=== PATIENT | female | born 1975 | race Caucasian/White ===

== ENCOUNTER 2022-11-01 14:38 | Emergency (ER) | payer MEDICARE, SELFPAY ==
[2022-11-01 14:44] VITALS: BP 115/67; PULSE 84; RESP 18; TEMP 36.6; O2SAT 98; BMI 18.9
--- NOTE | 2022-11-01 14:55 | DI.RAD.S_ITS ---
PROCEDURE: XR CHEST 1V INDICATIONS: chest pain TECHNIQUE: One view of the chest was acquired. COMPARISON: None. FINDINGS: Surgical changes and devices: None. Lungs and pleura: Lungs are clear. No pleural effusions or pneumothorax. Mediastinum: Mediastinal contours appear normal. Heart size is normal. Bones and chest wall: No suspicious bony lesions. Overlying soft tissues appear unremarkable. IMPRESSION: No acute cardiopulmonary findings Approved by: Dm Barcenas M.D. on 11/01/2022 at 14:40
[2022-11-01 15:18] LABS: Add Manual Diff / Slide Review NO; Basophils Absolute Auto 0 /uL (0-100); Basophils Percent Auto 0.3 % (0-2); Eosinophils Absolute Auto 0 /uL (0-450); Eosinophils Percent Auto 0.3 % (2-4); Hematocrit 41.3 % (36-46); Hemoglobin 13.7 g/dL (12.0-16.0); Lymphocytes Absolute Auto 700 /uL (1100-4500); Lymphocytes Percent Auto 11.3 % (25-40); Mean Corpuscular HGB Conc 33.2 % (30-36); Mean Corpuscular Hemoglobin 31.4 PG (26-34); Mean Corpuscular Volume 94.6 fL (80-100); Monocytes Absolute Auto 400 /uL (0-900); Monocytes Percent Auto 6.9 % (3-14); Neutrophils Absolute Auto 5100 /uL (1500-7000); Neutrophils Percent Auto 81.2 % (50-75); Platelet Count 252 X10^3/uL (150-400); Red Blood Cell Count 4.36 X10^6/uL (4.0-5.2); Red Cell Distribution Width 12.7 % (11.6-14.8); White Blood Cell Count 6.3 X10^3/uL (4.5-11.0)
[2022-11-01 15:24] LABS: Prothrombin Time 11.2 SECONDS (10.1-12.7)
[2022-11-01] MEDS: SODIUM CHLORIDE 0.9% 1,000 ML 1000 ML IV (15:26)
[2022-11-01 15:27] LABS: PTT Partial Thromboplastin Tim 32 SECONDS (26-36)
[2022-11-01 15:30] LABS: COVID19 -Nasal RAPID Negative (Negative)
[2022-11-01 15:31] LABS: Alanine Aminotransferase 20 IU/L (<35); Albumin 4.9 g/dL (3.5-5.0); Albumin Globulin Ratio 1.6 (1.0-2.8); Alkaline Phosphatase 51 U/L (38-126); Aspartate Aminotransferase 44 IU/L (14-36); BUN Creatinine Ratio 16.7 (6-22); Bilirubin Total 0.6 mg/dL (0.2-1.3); Blood Urea Nitrogen 12 mg/dL (7-17); Calcium 9.1 mg/dL (8.4-10.2); Carbon Dioxide 27 mmol/L (22-32); Chloride 99 mmol/L (98-107); Creatine Kinase 119 U/L (30-135); Estimated Glomerular Filt Rate > 60 mL/min (>60); Glucose 104 mg/dL (70-100); HEMOLYSIS < 15 (0-50); Lipase 150 U/L (23-300); Magnesium 1.9 mg/dL (1.6-2.3); Potassium 3.4 mmol/L (3.4-5.1); Sodium 135 mmol/L (137-145); Total Protein 7.9 g/dL (6.3-8.2)
[2022-11-01 15:43] LABS: Troponin I < 0.012 ng/mL (0.01-0.034)
[2022-11-01 15:46] LABS: CKMB % Relative Index 0.5 % (1.5-5.0); Creatine Kinase MB 0.62 ng/mL (<2.37)
[2022-11-01 16:12] VITALS: BP 182/99; PULSE 101; O2SAT 97
--- NOTE | 2022-11-01 16:45 | ED_ITS ---
HPI - General Adult General Chief complaint: Syncope Stated complaint: blood pressure, almost passed out Time Seen by Provider: 11/01/22 15:16 Source: patient Mode of arrival: Wheelchair History of Present Illness HPI narrative: 47-year-old female occasional smoker with history of MS and hypertension presents for evaluation of a near syncopal episode. She had been in her normal state of health and states that she was in the kitchen and started feeling a bit flushed and lightheaded as if she were going to pass out. She is been through multiple episodes that are similar in the past and sometimes it is because dehydration or abnormal electrolytes, another occasions has been thought to perhaps be related to her MS but she is very certain this is not related to an MS flare. She states she is been under increased stress and has been packing up her home. She denies any change in medications or diet. She is had no recent trauma or injury. She denies chest pain or shortness of breath. Related Data Allergies Allergy/AdvReac Type Severity Reaction Status Date / Time hydromorphone [From Dilaudid] AdvReac Vomiting Verified 11/01/22 14:44 Review of Systems Review of Systems Narrative: GENERAL: See HPI HEENT: Denies sinus pain, ear pain, sore throat, difficulty swallowing, dizziness. RESPIRATORY: Denies dyspnea, cough, wheezing, hemoptysis, sputum. CARDIOVASCULAR: See HPI GASTROINTESTINAL: Denies nausea, vomiting, abdominal pain, diarrhea, constipation, melena. : Denies dysuria, frequency, incontinence, hematuria, urinary retention. MUSCULOSKELETAL: denies weakness, joint pain, or bony pain SKIN: Denies rash, skin lesions, or other NEUROLOGIC: See HPI PSYCHIATRIC: No concerning psychosocial issues. 12 point review of systems is negative except for those stated above Patient History Social History Smoking Status: Current some day smoker Smoking Status: Current some day smoker tobacco type: vaping alcohol intake frequency: holidays/special occasions only Substance Use Type: marijuana Exam Narrative Exam Narrative: GENERAL: 47[] year old patient appears stated age. Well-developed patient, in mild distress. Tearful HEAD: Atraumatic. Normocephalic. EYES: Pupils equal round and reactive. Extraocular motions intact. No scleral icterus. No injection or drainage. ENT: Nose without bleeding, purulent drainage. Throat without erythema, tonsillar hypertrophy or exudate. Airway patent. NECK: Trachea midline. Non tender CARDIOVASCULAR: Regular rate and rhythm without murmurs, gallops, or rubs. RESPIRATORY: Clear to auscultation. Breath sounds equal bilaterally. No wheezes, rales, or rhonchi. GASTROINTESTINAL: Abdomen soft, non-tender, nondistended. EXTREMITIES: No edema or joint tenderness. BACK: Nontender without deformity or crepitance. No flank tenderness. NEURO: AOx3. SKIN: No rash or erythema of visible areas Initial Vital Signs Initial Vital Signs: Vital Signs Temperature 97.9 F 11/01/22 14:44 Pulse Rate 84 11/01/22 14:44 Respiratory Rate 18 11/01/22 14:44 Blood Pressure 115/67 11/01/22 14:44 Pulse Oximetry 98 11/01/22 14:44 Oxygen Delivery Method 11/01/22 14:44 Course Orders Ordered: Discontinued Medications Aspirin (Aspirin 81 Mg Chew Tab) 324 mg PO NOW ONE Stop: 11/01/22 14:56 Last Admin: 11/01/22 17:10 Dose: Not Given Documented By: DELORES Sodium Chloride (Normal Saline 0.9%) 1,000 mls @ 1,000 mls/hr IV BOLUS ONE Stop: 11/01/22 16:23 Last Infusion: 11/01/22 17:10 Dose: 0 mls/hr Documented By: Admin: 11/01/22 15:26 Dose: 1,000 mls/hr Documented By: KARLA Reevaluation(s) Reevaluation #1: Patient no longer dizzy or lightheaded, she is ambulatory through the department and does have a bit of an abnormal gait but states this is baseline for her Vital Signs Vital signs: Vital Signs - 8 hr 11/01/22 14:44 11/01/22 16:12 Temperature 97.9 F Pulse Rate 84 101 H Respiratory Rate 18 Blood Pressure 115/67 182/99 H Pulse Oximetry 98 97 Oxygen Delivery Method Room Air Room Air Medical Decision Making Lab Data 11/01/22 15:00 11/01/22 15:00 Labs: Lab Results 11/01/22 11/01/22 11/01/22 Range/Units 15:00 15:00 15:00 WBC 6.3 (4.5-11.0) X10^3/uL RBC 4.36 (4.0-5.2) X10^6/uL Hgb 13.7 (12.0-16.0) g/dL Hct 41.3 (36-46) % MCV 94.6 (80-100) fL MCH 31.4 (26-34) PG MCHC 33.2 (30-36) % RDW 12.7 (11.6-14.8) % Plt Count 252 (150-400) X10^3/uL Neut % (Auto) 81.2 H (50-75) % Lymph % (Auto) 11.3 L (25-40) % [place] % (Auto) 6.9 (3-14) % Eos % (Auto) 0.3 L (2-4) % Baso % (Auto) 0.3 (0-2) % Neut # (Auto) 5100 (6155-9507) /uL Lymph # (Auto) 700 L (6837-2006) /uL [place] # (Auto) 400 (0-900) /uL Eos # (Auto) 0 (0-450) /uL Baso # (Auto) 0 (0-100) /uL PT 11.2 (10.1-12.7) SECONDS INR 1.0 (0.9-1.3) APTT 32 (26-36) SECONDS Sodium 135 L (137-145) mmol/L Potassium 3.4 (3.4-5.1) mmol/L Chloride 99 (98-107) mmol/L Carbon Dioxide 27 (22-32) mmol/L BUN 12 (7-17) mg/dL Creatinine 0.72 (0.52-1.04) mg/dL Estimated GFR > 60 (>60) mL/min BUN/Creatinine Ratio 16.7 (6-22) Glucose 104 H (70-100) mg/dL Calcium 9.1 (8.4-10.2) mg/dL Magnesium 1.9 (1.6-2.3) mg/dL Total Bilirubin 0.6 (0.2-1.3) mg/dL AST 44 H (14-36) IU/L ALT 20 (<35) IU/L Alkaline Phosphatase 51 (38-126) U/L Total Creatine Kinase 119 (30-135) U/L CK-MB (CK-2) 0.62 (<2.37) ng/mL CK-MB (CK-2) Rel Index 0.5 L (1.5-5.0) % Troponin I < 0.012 (0.01-0.034) ng/mL Total Protein 7.9 (6.3-8.2) g/dL Albumin 4.9 (3.5-5.0) g/dL Globulin 3.0 (1.7-4.1) g/dL Albumin/Globulin Ratio 1.6 (1.0-2.8) Lipase 150 (23-300) U/L SARS-CoV-2 (PCR) (Negative) 11/01/22 Range/Units 15:00 WBC (4.5-11.0) X10^3/uL RBC (4.0-5.2) X10^6/uL Hgb (12.0-16.0) g/dL Hct (36-46) % MCV (80-100) fL MCH (26-34) PG MCHC (30-36) % RDW (11.6-14.8) % Plt Count (150-400) X10^3/uL Neut % (Auto) (50-75) % Lymph % (Auto) (25-40) % [place] % (Auto) (3-14) % Eos % (Auto) (2-4) % Baso % (Auto) (0-2) % Neut # (Auto) (4547-1127) /uL Lymph # (Auto) (6349-9762) /uL [place] # (Auto) (0-900) /uL Eos # (Auto) (0-450) /uL Baso # (Auto) (0-100) /uL PT (10.1-12.7) SECONDS INR (0.9-1.3) APTT (26-36) SECONDS Sodium (137-145) mmol/L Potassium (3.4-5.1) mmol/L Chloride (98-107) mmol/L Carbon Dioxide (22-32) mmol/L BUN (7-17) mg/dL Creatinine (0.52-1.04) mg/dL Estimated GFR (>60) mL/min BUN/Creatinine Ratio (6-22) Glucose (70-100) mg/dL Calcium (8.4-10.2) mg/dL Magnesium (1.6-2.3) mg/dL Total Bilirubin (0.2-1.3) mg/dL AST (14-36) IU/L ALT (<35) IU/L Alkaline Phosphatase (38-126) U/L Total Creatine Kinase (30-135) U/L CK-MB (CK-2) (<2.37) ng/mL CK-MB (CK-2) Rel Index (1.5-5.0) % Troponin I (0.01-0.034) ng/mL Total Protein (6.3-8.2) g/dL Albumin (3.5-5.0) g/dL Globulin (1.7-4.1) g/dL Albumin/Globulin Ratio (1.0-2.8) Lipase (23-300) U/L SARS-CoV-2 (PCR) Negative (Negative) Point of Care Testing Test Results Negative Urine Dip Bedside Urine Glucose Negative Bedside Urine Bilirubin - Negative Bedside Urine Ketone - Negative Urine Specific [place] 1.005 Bedside Urine Occult Blood - Negative Bedside Urine pH 6.5 Bedside Urine Protein - Negative Bedside Urine Urobilinogen - Negative Bedside Urine Nitrite - Negative Bedside Urine Leukocytes - Negative Esterase Point of care testing: Point of Care Testing Test Results Negative Urine Dip Bedside Urine Glucose Negative Bedside Urine Bilirubin - Negative Bedside Urine Ketone - Negative Urine Specific [place] 1.005 Bedside Urine Occult Blood - Negative Bedside Urine pH 6.5 Bedside Urine Protein - Negative Bedside Urine Urobilinogen - Negative Bedside Urine Nitrite - Negative Bedside Urine Leukocytes - Negative Esterase MDM Narrative Medical decision making narrative: [47-year-old female with history of MS presents with near syncopal episode] Multiple etiologies for patient's symptoms considered including, but not limited to: [Dehydration, electrolyte abnormality, renal failure, COVID, hypoglycemia versus other] Prior Charts reviewed: Patient provided access to her epic chart Labs reviewed and interpreted by myself: No significant abnormalities requiring specific or immediate intervention Imaging reviewed: Chest x-ray without acute findings Patient's symptoms improved over duration of stay with above-stated therapies. Findings and discharge diagnosis discussed with patient/family followed by verbalization of understanding Return precautions discussed with patient/family whom verbalize understanding of diagnosis and plan Discharge Plan Departure Patient Disposition: Home Clinical Impression: Near syncope Instructions: Fainting Activity Restrictions/Additional Instructions: *You have been diagnosed with [near-syncope] *What to do: *Please continue to take your regular medications as directed. *Please follow up with your primary care provider in 2-3 days, call for an appointment. Let them know you were seen in the Emergency Department and that we ask that you be seen in follow up. We will electronically transmit a record of today's note if your PCP is in our system *If you do not have a primary care provider please contact the [facility] Resource line at [phone]. They will ask some questions about your medical history and help get you set up with a doctor in the community. *Return to Emergency Department if you should have any new, worsening or concerning symptoms, such as [fever greater than 101 F, shaking chills, wo rsening pain, persistent vomiting or other bothersome symptoms] Stand Alone Forms: Patient Portal/API
--- NOTE | 2022-11-01 17:13 | PC.NURSE ---
Pt is here for near syncope. Pt able to ambulate to BR independently. Pt is alert/oriented but tearful. Pt feels dizzy when she changes position and bends over.
== END 2022-11-01 17:16 | disposition home or self-care (01) ==
PROVIDERS: Emergency Provider Emergency Medicine
DX: R55 Syncope and collapse (principal); R07.9 Chest pain, unspecified; Z20.822 Contact with and (suspected) exposure to COVID-19
CPT/HCPCS: 36415; 71045; 80053; 81003; 81025; 82550; 82553; 83690; 83735; 84484; 85025; 85610; 85730; 87635; 93005; 96360; 96361; 99284; C9803

== ENCOUNTER 2023-03-19 13:44 | Emergency (ER) | payer MEDICARE, SELFPAY ==
[2023-03-19 13:47] VITALS: BP 127/72; PULSE 106; RESP 16; TEMP 37; O2SAT 99; BMI 19.4
--- NOTE | 2023-03-19 14:01 | DI.RAD.S_ITS ---
PROCEDURE: XR LUMBAR SPINE 2-3V INDICATIONS: LBP right side TECHNIQUE: 3 views of the lumbar spine were acquired. COMPARISON: None. FINDINGS: Bones: 5 [id number] vertebrae are present. Rightward curvature of the thoracolumbar spine with a Quiñones angle of 5?. There is normal bony alignment. No vertebral body compression fractures. No suspicious bony lesions. Soft tissues: Overlying bowel gas pattern is normal. No suspicious soft tissue calcifications. IMPRESSION: 1. No acute abnormality of the lumbar spine. 2. Mild rightward curvature of the lumbar spine. Dictated by: Wesly Cano M.D. on 03/19/2023 at 13:48 Approved by: Wesly Cano M.D. on 03/19/2023 at 13:50
[2023-03-19] MEDS: KETOROLAC 30 MG/ML VIAL 15 MG IM (14:16)
[2023-03-19] MEDS: ACETAMINOPHEN 325 MG TABLET 975 MG PO (14:16)
--- NOTE | 2023-03-19 14:20 | ED_ITS ---
HPI - Extremity Injury (Lower) <Danelle Padilla PA-C - Last Filed: 03/19/23 20:26> General Chief Complaint: Extremity Injury, Lower Stated Complaint: Fall 1wk ago, R lower back pain/ tailbone/ pelvis Time Seen by Provider: 03/19/23 13:58 Source: patient Mode of arrival: Ambulatory History of Present Illness HPI Narrative: Is a 48-year-old female who endorses a history of MS who presents today with concern for right buttock pain after she believes she had a fall at home about a week and a half ago. Patient states she does not actually really remember falling but she says she is pretty sure she did she woke up in her bed and had some right low back and buttock pain. 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 She has been taking Tylenol as well with limited effect, and she also smokes a product with CBD in for pain and her MS symptoms in general. Patient denies any change in bowel or bladder habit any new one-sided weakness or numbness or tingling radiating down her leg. She denies a history of sciatica but does state that her left side is chronically weaker than her right 2nd to her MS and has footdrop and wears a brace for this on the left. Patient states she came to the ER after waiting to be seen in the walk-in clinic for 25 minutes. Patient states when she is not having a back issue like this and she is feeling fine she typically is able to walk a few miles. Lately she is been unable to do her normal activity because of her pain. She denies any other co mplaints or concerns. Related Data Previous Rx's Medication Instructions Recorded baclofen 10 mg tablet 10 mg PO TID muscle spasm 10 days 03/19/23 #30 tabs lidocaine 5 % topical patch 1 patch topical DAILY #15 ea 03/19/23 prednisone 20 mg tablet 20 mg PO BID 5 days #10 tabs 03/19/23 Allergies Allergy/AdvReac Type Severity Reaction Status Date / Time hydromorphone [From Dilaudid] AdvReac Vomiting Verified 11/01/22 14:44 Review of Systems <Danelle Padilla PA-C - Last Filed: 03/19/23 20:26> Review of Systems Narrative: See HPI Patient History <Danelle Padilla PA-C - Last Filed: 03/19/23 20:26> Social History Smoking Status: Current some day smoker Smoking Status: Current some day smoker tobacco type: vaping alcohol intake frequency: holidays/special occasions only Substance Use Type: marijuana Exam <Danelle Padilla PA-C - Last Filed: 03/19/23 20:26> Narrative Exam Narrative: GENERAL: 48 year old patient appears stated age. Well-developed patient, patient is tearful and in moderate distress, patient leans slightly to the left when she is sitting in order to keep her weight off of her right buttock, prefers to stand. HEAD: Atraumatic. Normocephalic. EYES: Pupils equal round and reactive. Extraocular motions intact. No scleral icterus. No injection or drainage. ENT: Nose without bleeding, purulent drainage. Airway patent. NECK: Trachea midline. CARDIOVASCULAR: Regular rate and rhythm without murmurs, gallops, or rubs. RESPIRATORY: Clear to auscultation. Breath sounds equal bilaterally. No wheezes, rales, or rhonchi. GASTROINTESTINAL: Abdomen soft, non-tender, nondistended. EXTREMITIES: Patient's left lower extremity is slightly weaker than the right at baseline, is able to perform flexion-extension at the hip and knee bilaterally, unable to perform plantar flexion on the left at baseline per patient. Patient's right low back/upper buttock pain is worse with flexion of the knee on the right, and with flexion of the hip on the right. No edema or joint tenderness. BACK: Patient is tender over the paraspinal muscles lumbar region most prominently on the right, there is no midline spinous process tenderness of C- spine T-spine or L-spine, there is tenderness and tight muscles of the right upper buttock and over the SI joint. Nontender without deformity or crepitance. No flank tenderness. NEURO: AOx3. SKIN: No rash or erythema of visible areas Initial Vital Signs Initial Vital Signs: Vital Signs Temperature 98.6 F 03/19/23 13:47 Pulse Rate 106 H 03/19/23 13:47 Respiratory Rate 16 03/19/23 13:47 Blood Pressure 127/72 03/19/23 13:47 Pulse Oximetry 99 03/19/23 13:47 Oxygen Delivery Method Room Air 03/19/23 13:47 <Helen Brown DO - Last Filed: 03/20/23 08:10> Initial Vital Signs Initial Vital Signs: Vital Signs Temperature 98.6 F 03/19/23 13:47 Pulse Rate 106 H 03/19/23 13:47 Respiratory Rate 16 03/19/23 13:47 Blood Pressure 127/72 03/19/23 13:47 Pulse Oximetry 99 03/19/23 13:47 Oxygen Delivery Method Room Air 03/19/23 13:47 Course <Danelle Padilla PA-C - Last Filed: 03/19/23 20:26> Orders Ordered: Discontinued Medications Acetaminophen (Acetaminophen 325 Mg Tablet) 975 mg PO NOW ONE Stop: 03/19/23 14:10 Last Admin: 03/19/23 14:16 Dose: 975 mg Documented By: RB Ketorolac Tromethamine (Ketorolac 30 Mg/Ml Vial) 15 mg IM NOW ONE Stop: 03/19/23 14:10 Last Admin: 03/19/23 14:16 Dose: 15 mg Documented By: RB Vital Signs Vital signs: Vital Signs - 8 hr 03/19/23 13:47 03/19/23 16:24 Temperature 98.6 F 97.9 F Pulse Rate 106 H 86 Respiratory Rate 16 22 Blood Pressure 127/72 122/68 Pulse Oximetry 99 98 Oxygen Delivery Method Room Air Room Air <Helen Brown DO - Last Filed: 03/20/23 08:10> Orders Ordered: Discontinued Medications Acetaminophen (Acetaminophen 325 Mg Tablet) 975 mg PO NOW ONE Stop: 03/19/23 14:10 Last Admin: 03/19/23 14:16 Dose: 975 mg Documented By: RB Ketorolac Tromethamine (Ketorolac 30 Mg/Ml Vial) 15 mg IM NOW ONE Stop: 03/19/23 14:10 Last Admin: 03/19/23 14:16 Dose: 15 mg Documented By: RB Vital Signs Vital signs: Vital Signs - 8 hr 03/19/23 13:47 03/19/23 16:24 Temperature 98.6 F 97.9 F Pulse Rate 106 H 86 Respiratory Rate 16 22 Blood Pressure 127/72 122/68 Pulse Oximetry 99 98 Oxygen Delivery Method Room Air Room Air MDM - Extremity Injury (Lower) <Danelle Padilla PA-C - Last Filed: 03/19/23 20:26> Differential Diagnosis Differential diagnosis: Likely other (Back strain, muscle spasm, fall) Lab Data Labs: Urine Dip Bedside Urine Glucose Negative Bedside Urine Bilirubin - Negative Bedside Urine Ketone - Negative Urine Specific [place] 1.005 Bedside Urine Occult Blood - Negative Bedside Urine pH 8.0 Bedside Urine Protein - Negative Bedside Urine Urobilinogen - Negative Bedside Urine Nitrite - Negative Bedside Urine Leukocytes - Negative Esterase Imaging Data XR lumbar: My Impression: Agree with Radiology interpretation Radiologist's Impression: [address] [address] XRay Report Signed Patient: Leslie Baca MR#: [id number] : 1975 Acct:[id number] Age/Sex: 48 / F Date of Service: 03/19/23 Loc: ED Accession Number: [id number] ?? Procedure: XR lumbar spine 2-3V Ordering Provider: Danelle Padilla P.A-C PROCEDURE:? XR LUMBAR SPINE 2-3V ? INDICATIONS:? LBP right side ? TECHNIQUE:? 3 views of the lumbar spine were acquired.? ? COMPARISON:? None. ? FINDINGS:? ? Bones:? 5 [id number] vertebrae are present.? Rightward curvature of the thoracolumbar spine with a Quiñones angle of 5?.? There is normal bony alignment.? No vertebral body compression fractures.? No suspicious bony lesions.? ? Soft tissues:? Overlying bowel gas pattern is normal.? No suspicious soft tissue calcifications.? ? IMPRESSION:? 1. No acute abnormality of the lumbar spine. 2. Mild rightward curvature of the lumbar spine.? ? ? Dictated by: Wesly Cano M.D. on 03/19/2023 at 13:48 ? ? Approved by: Wesly Cano M.D. on 03/19/2023 at 13:50?? Treatment and disposition Shared decision making:: Shared decision-making was used to determine this patient's plan of care and plan for outpatient follow-up. MDM Narrative Medical decision making narrative: This is a 48-year-old woman with a history of MS, who presents with concern for right low back and buttock pain that has been present for a week and a half after she thinks she had a fall although she can not remember for sure. X-rays obtained today are unremarkable there is mild rightward curvature of the lumbar spine noted however patient is holding herself at an angle in exam due to discomfort. Exam is suggestive of muscle spasm and muscle tightness, low back strain. She has no back pain red flags today. Discussed x-ray results with the patient and she is treated today with baclofen, lidocaine and prednisone short course. She is advised to follow up closely with her primary care provider. Monitor for new or worsening symptoms consider seeing Physical therapy or Orthopedics if her symptoms are not improving. Based on her exam/history I have low suspicion that this is a flare of MS. Return precautions provided, follow- up plan discussed, all questions answered. <Helen Brown, DO - Last Filed: 03/20/23 08:10> Lab Data Labs: Urine Dip Bedside Urine Glucose Negative Bedside Urine Bilirubin - Negative Bedside Urine Ketone - Negative Urine Specific [place] 1.005 Bedside Urine Occult Blood - Negative Bedside Urine pH 8.0 Bedside Urine Protein - Negative Bedside Urine Urobilinogen - Negative Bedside Urine Nitrite - Negative Bedside Urine Leukocytes - Negative Esterase Discharge Plan Departure Patient Disposition: Home Clinical Impression: Low back strain, Muscle spasm of back Activity Restrictions/Additional Instructions: *You have been diagnosed with [back strain, muscle spasm] *What to do: *Please continue to take your regular medications as directed. [ 3] New medication prescriptions sent to your pharmacy: [Lidocaine, baclofen, prednisone] [ ] New medication written as a paper prescription [ ] No new medications given *Please follow up with your primary care provider in 2-3 days, call for an appointment. Let them know you were seen in the Emergency Department and that we ask that you be seen in follow up. We will electronically transmit a record of today's note if your PCP is in our system. Your x-ray did not show any acute problem or obvious injury, you do have slight curvature of your spine is suspect this is due to how your holding your body and muscle tightness associated with your discomfort. I do think that you may benefit from physical therapy or possibly seeing Orthopedics, usually back injuries can take up to 3 weeks to improve on their own, but if it is not improving within that time then talking to her PCP about possibly seeing orthopedics is a good idea, they may also consider repeat or additional imaging. I am prescribing a muscle relaxer as well as topical lidocaine patches that you can wear for up to 12 hours a day, in addition I am also prescribing a short course of steroid medication to help with inflammation. I do recommend you continue with Tylenol at home as well and you may want to try heat and ice alternating or see what works best for you. *If you do not have a primary care provider please contact the [facility] Resource line at [phone]. They will ask some questions about your medical history and help get you set up with a doctor in the community. *Return to Emergency Department if you should have any new, worsening or concerning symptoms, such as [fever greater than 101 F, shaking chills, worsening pain, persistent vomiting or other bothersome symptoms] Prescriptions: New lidocaine 5 % adhesive patch,medicated 1 patch topical DAILY Qty: 15 1RF Rx Instructions: leave on most painful area for up to 12 hrs prednisone 20 mg tablet 20 mg PO BID 5 Days Qty: 10 0RF baclofen 10 mg tablet 10 mg PO TID 10 Days Qty: 30 0RF Referrals: Miscellaneous,Doctor, MD [Primary Care Provider] - Stand Alone Forms: Patient Portal/API <Helen Brown DO - Last Filed: 03/20/23 08:10> Cosign ED Attending Vinod Attestation: I was immediately available in the department for consultation. Documentation has been reviewed.
[2023-03-19 16:24] VITALS: BP 122/68; PULSE 86; RESP 22; TEMP 36.6; O2SAT 98
== END 2023-03-19 16:25 | disposition home or self-care (01) ==
PROVIDERS: Emergency Provider Student in an Organized Health Care Education/Training Program
DX: S39.012A Strain of muscle, fascia and tendon of lower back, initial encounter (principal); M62.830 Muscle spasm of back; X58.XXXA Exposure to other specified factors, initial encounter
CPT/HCPCS: 72100; 81003; 96372; 99283; 99284; J1885

== ENCOUNTER → 2023-03-22 16:07 | Outpatient (CLI) | payer MEDICARE, SELFPAY ==
[2023-03-22 17:18] LABS: Add Manual Diff / Slide Review NO; Basophils Absolute Auto 0 /uL (0-100); Basophils Percent Auto 0.6 % (0-2); Eosinophils Absolute Auto 100 /uL (0-450); Eosinophils Percent Auto 1.4 % (2-4); Hematocrit 42.6 % (36-46); Hemoglobin 14.3 g/dL (12.0-16.0); Lymphocytes Absolute Auto 900 /uL (1100-4500); Lymphocytes Percent Auto 16.6 % (25-40); Mean Corpuscular HGB Conc 33.6 % (30-36); Mean Corpuscular Hemoglobin 31.6 PG (26-34); Mean Corpuscular Volume 94.1 fL (80-100); Monocytes Absolute Auto 500 /uL (0-900); Monocytes Percent Auto 9.7 % (3-14); Neutrophils Absolute Auto 3700 /uL (1500-7000); Neutrophils Percent Auto 71.7 % (50-75); Platelet Count 284 X10^3/uL (150-400); Red Blood Cell Count 4.53 X10^6/uL (4.0-5.2); Red Cell Distribution Width 14.1 % (11.6-14.8); White Blood Cell Count 5.1 X10^3/uL (4.5-11.0)
[2023-03-22 17:28] LABS: Alanine Aminotransferase 21 IU/L (<35); Albumin 4.7 g/dL (3.5-5.0); Albumin Globulin Ratio 1.5 (1.0-2.8); Alkaline Phosphatase 57 U/L (38-126); Aspartate Aminotransferase 40 IU/L (14-36); BUN Creatinine Ratio 18.8 (6-22); Bilirubin Total 0.6 mg/dL (0.2-1.3); Blood Urea Nitrogen 12 mg/dL (7-17); Calcium 9.1 mg/dL (8.4-10.2); Carbon Dioxide 31 mmol/L (22-32); Chloride 100 mmol/L (98-107); Estimated Glomerular Filt Rate > 60 mL/min (>60); Ethanol (ETOH) < 10 mg/dL; Globulin 3.1 g/dL (1.7-4.1); Glucose 92 mg/dL (70-100); HEMOLYSIS < 15 (0-50); Potassium 3.6 mmol/L (3.4-5.1); Sodium 138 mmol/L (137-145); Total Protein 7.8 g/dL (6.3-8.2)
[2023-03-23 13:38] LABS: UR Morphine/Opiate cutoff 300 Negative (Negative); Ur Creatinine Normal (Normal); Ur Specific Gravity Normal (Normal); Urine Amphetamines Negative (Negative); Urine Barbiturates Negative (Negative); Urine Benzodiazepines Negative (Negative); Urine Cocaine Negative (Negative); Urine MDMA Negative (Negative); Urine Methadone Negative (Negative); Urine Methamphetamines Negative (Negative); Urine Oxycodone Negative (Negative); Urine Phencyclidine Negative (Negative); Urine Tetrahydrocannabinol Positive (Negative); Urine Tricyclic Antidepressant Negative (Negative); Urine pH Normal (Normal)
== END ==
PROVIDERS: Referring Provider Physical Medicine & Rehabilitation; Visit Provider Physical Medicine & Rehabilitation
DX: G35 Multiple sclerosis (principal)
CPT/HCPCS: 36415; 80053; 80305; 80320; 85025

== ENCOUNTER → 2023-03-31 08:00 | Outpatient (CLI) | payer MEDICARE, SELFPAY ==
--- NOTE | 2023-03-31 | DI.CT.S_ITS ---
PROCEDURE: CT PEL WO CON INDICATIONS: RULE OUT OCCULT FX IN SACRUM TECHNIQUE: Noncontrast 3 mm axial sections acquired through the bony pelvis, with coronal and sagittal reformatting. COMPARISON: None. FINDINGS: Image quality: Excellent. Bones: There is cortical disruption involving lower sacrum best seen on sagittal sequence image 60. Minimal anterior displacement at fracture site is seen. No other pelvic or hip fracture. Mild bilateral hip joint osteoarthritic changes are seen with joint space narrowing and subchondral sclerosis. No evidence of avascular necrosis of femoral head. Mild left worse than right bilateral sacroiliac joint osteoarthritic changes also seen without ankylosis or bony erosion. Soft tissues: There is mild presacral soft tissue swelling adjacent to sacral fracture site. No pelvic free fluid or free air. No abnormal bowel wall thickening. Bladder wall thickness is normal. Suggestion of left ovarian cyst measures 3.8 x 4.4 cm in size. There is likely hysterectomy. No abnormal soft tissue calcifications. No pelvic lymphadenopathy. IMPRESSION: 1. Slightly displaced lower sacral fracture as described above with mild adjacent presacral soft tissue swelling. 2. No other fracture or dislocation. Mild osteoarthritic changes in bony pelvis. No suspicious bony lesions. No evidence of avascular necrosis of femoral head. 3. No pelvic free fluid or free air. 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 Dictated by: Elvis Biswas M.D. on 03/31/2023 at 11:10 Approved by: Elvis Biswas M.D. on 03/31/2023 at 13:54
== END ==
PROVIDERS: Referring Provider Physical Medicine & Rehabilitation; Visit Provider Physical Medicine & Rehabilitation
DX: G35 Multiple sclerosis (principal); S32.10XA Unspecified fracture of sacrum, initial encounter for closed fracture; G89.29 Other chronic pain; Z79.899 Other long term (current) drug therapy
CPT/HCPCS: 72192

== ENCOUNTER → 2023-09-07 13:39 | Outpatient (CLI) | payer MEDICARE, SELFPAY | LOC: CAR 13:40 | PROVIDERS: PCP Family Medicine; Referring Provider Family Medicine; Visit Provider Family Medicine | DX: R00.2 Palpitations (principal) | CPT/HCPCS: 93246 ==

== ENCOUNTER → 2023-10-26 11:06 | Outpatient (CLI) | payer MEDICARE, SELFPAY ==
--- NOTE | 2023-10-26 11:08 | DI.MG.S_ITS ---
BILATERAL DIGITAL SCREENING MAMMOGRAM 3D/2D WITH CAD: 10/26/2023 CLINICAL: Routine screening. Comparison is made to exams dated: 12/03/2020 mammogram, 09/21/2017 mammogram, and 07/20/2016 mammogram - [facility]. Both breasts are extremely dense, which lowers the sensitivity of mammography (category d />75% glandular tissue). Current study was also evaluated with a Computer Aided Detection (CAD) system. No significant masses, calcifications, or other findings are seen in either breast. There has been no significant interval change. IMPRESSION: NEGATIVE There is no mammographic evidence of malignancy. A 1 year screening mammogram is recommended. Based on the Tyrer Cuzick model (a risk assessment model) the patient's lifetime risk is 13.6% and her 10 year risk is 3.2%. According to the ACR, ACS, and NCCN guidelines, an annual breast MRI exam along with mammogram is recommended if the patient's lifetime risk is 20% or greater. This exam was interpreted at Station ID: [id number]. NOTE: For mammograms, a report in lay terms will be sent to the patient. Approximately 15% of breast malignancies will not be visualized mammographically. In the management of a palpable breast mass, a negative mammogram must not discourage biopsy of a clinically suspicious lesion. Electronically Signed By: Renee choudhury/yang:10/30/2023 16:30:06 letter sent: Normal Exam ACR BI-RADS Category 1: Negative [id number]
== END ==
PROVIDERS: Family Provider Family Medicine; PCP Family Medicine; Referring Provider Family Medicine; Visit Provider Family Medicine
DX: Z12.31 Encounter for screening mammogram for malignant neoplasm of breast (principal); R92.343 Mammographic extreme density, bilateral breasts
CPT/HCPCS: 77063; 77067

== ENCOUNTER 2023-12-19 10:30 | Outpatient (RCR) | payer MEDICARE, SELFPAY ==
--- NOTE | 2023-10-24 12:50 | PT.OIE ---
Current Diagnoses Multiple sclerosis (10/24/23) Other chronic pain (10/24/23) Past Medical History (Last Updated 08/24/23 @ 20:46 by Marge Olmstead) Abnormal Pap smear of cervix Cervical spine disease Chicken pox (~1983) Fibroids Headache Hemiparesis Multiple sclerosis (~2003) Neck pain Palpitations Rosacea Sacral fracture (~2022) Shingles (~2004) Past Surgical History (Last Updated 08/24/23 @ 20:46 by Marge Olmstead) Anesthesia H/O: hysterectomy (~2013) Visit Care Team Role Provider Type Madonna Velazco MD Family Provider Physician Primary Care Provider Specialty: Family Practice FUSION JUNCTURE GRINDER Address: [address] [place] [address], [id number] Email: [email or web address] Andrew Lau MD Attending Provider Non-Staff Referring Provider Specialty: Physical Medicine and Rehab Address: [address] [place] [address], [id number] Email: Physical Therapy Initial Evaluation PT-OP-A Visit Information Start: 10/24/23 07:27 Freq: Status: Active Protocol: Document 10/24/23 09:05 MB (Rec: 10/24/23 09:36 [id number]) Out-Patient Physical Therapy Visit Information Visit Information Visit Type Initial Evaluation Visit Note [employer] 09/20 Visit Start Time 09:05 Visit Stop Time 09:45 Visit Number 1 Number of BUSINESS SERVICES TECH Visits 0 Evaluation Information Evaluation Date 10/24/23 PT-OP-B Current Condition Start: 10/24/23 07:27 Freq: Status: Active Protocol: Document 10/24/23 09:05 MB (Rec: 10/24/23 09:36 [id number]) Current Condition History of Current Condition Onset Date 20 years ago onset of MS Current Complaints Tingling and pain in right UE History of Current Condition 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 She had a history of left-sided drawing up. Pt has left foot drop and her balance isn't the most wonderful thing. She has more left sided weakness than the right. She fell after passing out over the summer and they don't know why. ? POTS and she is going for a tilt table test. MR has been stable for a long time. She has some disc issues in her cervical spine. She has occ dizziness with getting up too fast. Fluids and eating does not seem to affect the dizziness. She is drinking electrolytes, eating logan and working on fluids. She is adding salt to her diet . Pt had coccygeal fracture during fall last summer. She got an x-ray in the ED that was negative and was refused a CT. A CT showed the fracture. Pt went to chiropractor in [facility] within the 6 months and they adjusted her neck and she felt a lot better. She saw a craniosacral therapist in [facility] that helped with the coccyx. Pt has right arm tingling and pain at least a couple of months. Prior Treatments and Tests Stable MR Treatment Goals Patient/Caregiver Goals To decrease tingling and numbness in dorsum of right hand. Her lesion is C4-6. PT-OP-C Subjective Start: 10/24/23 07:27 Freq: Status: Active Protocol: Document 10/24/23 09:05 MB (Rec: 10/24/23 09:36 MB [id number]) OP-PT Subjective Patient Comments Patient Comments Pt states that the referral says she is here for MS but she is really here for tingling starting to go down her right hand. She has a cervical lesion and wonders if it that or something else. PT-OP-J Posture/Palpation/Skin Start: 10/24/23 07:27 Freq: Status: Active Protocol: Document 10/24/23 09:05 MB (Rec: 10/24/23 12:50 MB [id number]) Posture Evaluation Comments Posture Comments Standing posture: left shoulder is 1/2 lower than the right shoulder; right iliac crest is 1/4 higher than the left, overall spine has reduced curvature at all levels PT-OP-K Range of Motion Start: 10/24/23 07:27 Freq: Status: Active Protocol: Document 10/24/23 09:05 MB (Rec: 10/24/23 12:50 MB [id number]) Cervical Spine Range of Motion Cervical Spine Active Testing Position Standing Flexion 50 Extension 30 Rotation Left 70 Rotation Right 70 Lateral Flexion Left 25 Lateral Flexion Right 15 Shoulder Goniometric Range of Motion Shoulder ROM Limitations Comments Shoulder ROM is normal PT-OP-M Strength Start: 10/24/23 07:27 Freq: Status: Active Protocol: Document 10/24/23 09:05 MB (Rec: 10/24/23 12:50 MB [id number]) Shoulder Strength Shoulder Manual Muscle Testing Bilateral Flexion 5 Normal Abduction (C5) 5 Normal External Rotation 5 Normal Internal Rotation 5 Normal Elbow/Forearm Strength Elbow and Forearm Manual Muscle Testing Left Flexion (C6) 5 Normal Extension (C7) 5 Normal Pronation 3+ Fair+ Supination 4 Good Right Flexion (C6) 5 Normal Extension (C7) 5 Normal Pronation 4 Good Supination 4+ Good+ Hand Director Of Corporate Responsibility/Pinch Strength Hand Strength Left Comments 50 lb 38 lb 41 lb Right Comments 58 lb 66 lb 68 lb PT-OP-Q Treatments Start: 10/24/23 07:27 Freq: Status: Active Protocol: Document 10/24/23 09:05 MB (Rec: 10/24/23 09:36 MB [id number]) Therapeutic Exercises Supine Exercises Pelvic realignment exercises Equipment Used Ball Reps/Minutes 5 reps, 3 sec hold all exercises in order Comments Feet together ball squeeze, knee to opp ankle isometric, thigh press down Therapeutic Activity Therapeutic Activity Orthostatic assessment Comments BP and HR in RUE in hooklying with knees bent: 119/79, 75; standing 127/87, 91; standing 1': 128/85, 92 PT-OP-T Assessment and Plan Start: 10/24/23 07:27 Freq: Status: Active Protocol: Document 10/24/23 09:05 MB (Rec: 10/24/23 12:50 MB [id number]) Physical Therapy Assessment Rehab Potential Rehabilitation Potential Fair Evaluation Complexity Number of Personal Factors/Comorbidities 1-2 Number of Body Systems Impaired 3 Clinical Presentation at Evaluation Evolving Impairments Impairments Balance,Pain,Posture,ROM, Sensation,Soft Tissue Mobility ,Strength Goals 3 Impairment Lack of HEP [facility] Goal (LTG) Pt will perform progressive HEP with I including pelvic realignment and other postural exercises, breathing exercises, gentle flexibility and core strengthening exercises to improve posture, alignment and symptoms. LTG Duration 8 weeks 2 Impairment RUE weakness [facility] Goal (LTG) Pt will present with improved right elbow pronation to at least 4+/5 to improve fine motor tasks. LTG Duration 8 weeks 1 Impairment RUE paresthesias [facility] Goal (LTG) Pt will report at least a 50% improvement in right UE paresthesias to improve quality of life. LTG Duration 8 weeks Assessment Summary Assessment Pt is a 48 y/o female presenting with right UE paresthesias greatest in the dorsum of her right hand that have occurred over the past two months. She has a history of MS and reports stable lesion in cervical spine. She has left sided weakness from MS and coolness to touch in her left hand and foot per her report. Pt does present with more weakness in left elbow and hand today. She has some right elbow weakness as well with pronation and supination. During assessment, she reports paresthesias in right hand increase to the palmar side of her hand as well. Pt will benefit from PT trial to see if paresthesias and strength improve. If paresthesia is from her cervical lesion, there may not be much that PT can improve. She may then need referral back to provider for further work-up and treatment. Pt reports a history of dizziness and orthostatics are negative today. She is to schedule a tilt table test. She reports a concern about Raven-Danlos and POTS. She has not been diagnosed with either per her report at this point. She has some decreased cervical ROM and her thoracic rotation is grossly equal B. Physical Therapy Plan Frequency and Duration Frequency of Treatment 1-2x/week Duration of treatment (weeks) 8 Plan of Care Start Date 10/24/23 Plan of Care End Date 12/25/23 Therapeutic Interventions Therapeutic Interventions Balance Training,Canalithic Repositioning,Coordination Training,Home Exercise Program ,Joint Mobilizations,Manual Therapy,Neuromuscular Re- education,Patient/Caregiver Education,Self-Care/Home Management,Soft Tissue Mobilization,Taping, Therapeutic Activities, Therapeutic Exercises, Vestibular Rehabilitation Modalities Cold Pack/Ice Massage,Electric Stimulation,Hot Packs, Ultrasound Next Visit Focus/Plan Next Note Type Treatment Note Next Visit Plan Review pelvic realignment exercises Initiate manual assessment and intervention Consider pect stretch in hook lying if appropriate and gentle cervical range/postural progression In future, Buteyko breathing with primary PT
--- NOTE | 2023-10-24 12:51 | PT.OPPOC ---
Physical, Occupational & Speech Therapy At [facility] Current Diagnoses Multiple sclerosis (10/24/23) Other chronic pain (10/24/23) Visit Care Team Role Provider Type Madonna Velazco MD Family Provider Physician Primary Care Provider Specialty: Family Practice CANCELING MACHINE OPERATOR Address: [facility] [place], [address] Email: [email or web address] Andrew Lau MD Attending Provider Non-Staff Referring Provider Specialty: Physical Medicine and Rehab Address: [address] [place] [address], [id number] Email: Plan Of Care PT-OP-T Assessment and Plan Start: 10/24/23 07:27 Freq: Status: Active Protocol: Document 10/24/23 09:05 MB (Rec: 10/24/23 12:50 MB [id number]) Physical Therapy Assessment Rehab Potential Rehabilitation Potential Fair Evaluation Complexity Number of Personal Factors/Comorbidities 1-2 Number of Body Systems Impaired 3 Clinical Presentation at Evaluation Evolving Impairments Impairments Balance,Pain,Posture,ROM, Sensation,Soft Tissue Mobility ,Strength Goals 3 Impairment Lack of HEP 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 LTG Duration 8 weeks 2 Impairment RUE weakness Longterm Goal (LTG) Pt will present with improved right elbow pronation to at least 4+/5 to improve fine motor tasks. LTG Duration 8 weeks 1 Impairment RUE paresthesias Banquet Waiter/Waitress Goal (LTG) Pt will report at least a 50% improvement in right UE paresthesias to improve quality of life. LTG Duration 8 weeks Assessment Summary Assessment Pt is a 48 y/o female presenting with right UE paresthesias greatest in the dorsum of her right hand that have occurred over the past two months. She has a history of MS and reports stable lesion in cervical spine. She has left sided weakness from MS and coolness to touch in her left hand and foot per her report. Pt does present with more weakness in left elbow and hand today. She has some right elbow weakness as well with pronation and supination. During assessment, she reports paresthesias in right hand increase to the palmar side of her hand as well. Pt will benefit from PT trial to see if paresthesias and strength improve. If paresthesia is from her cervical lesion, there may not be much that PT can improve. She may then need referral back to provider for further work-up and treatment. Pt reports a history of dizziness and orthostatics are negative today. She is to schedule a tilt table test. She reports a concern about Raven-Danlos and POTS. She has not been diagnosed with either per her report at this point. She has some decreased cervical ROM and her thoracic rotation is grossly equal B. Physical Therapy Plan Frequency and Duration Frequency of Treatment 1-2x/week Duration of treatment (weeks) 8 Plan of Care Start Date 10/24/23 Plan of Care End Date 12/25/23 Therapeutic Interventions Therapeutic Interventions Balance Training,Canalithic Repositioning,Coordination Training,Home Exercise Program ,Joint Mobilizations,Manual Therapy,Neuromuscular Re- education,Patient/Caregiver Education,Self-Care/Home Management,Soft Tissue Mobilization,Taping, Therapeutic Activities, Therapeutic Exercises, Vestibular Rehabilitation Modalities Cold Pack/Ice Massage,Electric Stimulation,Hot Packs, Ultrasound Next Visit Focus/Plan Next Note Type Treatment Note Next Visit Plan Review pelvic realignment exercises Initiate manual assessment and intervention Consider pect stretch in hook lying if appropriate and gentle cervical range/postural progression In future, Buteyko breathing with primary PT Plan of Care Dates Plan of Care Start Date 10/24/23 Plan of Care End Date 12/25/23 Electronically Signed by: Giuliana Matos PT 10/24/23 5553 If you are in agreement with this Plan of Care, please return a signed and dated copy. I have reviewed this Plan of Care and certify that the skilled therapy services above are required to meet the patient?s needs. Physician Signature Date Printed Name and Credentials Clinical Instructor Signature Printed Name and Credentials
--- NOTE | 2023-10-31 09:48 | PT.OTN ---
Current Diagnoses Multiple sclerosis (10/31/23) Other chronic pain (10/31/23) Physical Therapy Treatment Note PT-OP-A Visit Information Start: 10/24/23 07:27 Freq: Status: Active Protocol: Document 10/31/23 09:02 MB (Rec: 10/31/23 09:48 MB [id number]) Out-Patient Physical Therapy Visit Information Visit Information Visit Type Treatment Note Visit Start Time 09:02 Visit Stop Time 09:42 Visit Number 2 Number of TARIFF COMPILER Visits 0 PT-OP-B Current Condition Start: 10/24/23 07:27 Freq: Status: Active Protocol: Document 10/24/23 09:05 MB (Rec: 10/24/23 09:36 MB [id number]) Current Condition History of Current Condition Onset Date 20 years ago onset of MS Current Complaints Tingling and pain in right UE History of Current Condition 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 She had a history of left-sided drawing up. Pt has left foot drop and her balance isn't the most wonderful thing. She has more left sided weakness than the right. She fell after passing out over the summer and they don't know why. ? POTS and she is going for a tilt table test. MR has been stable for a long time. She has some disc issues in her cervical spine. She has occ dizziness with getting up too fast. Fluids and eating does not seem to affect the dizziness. She is drinking electrolytes, eating logan and working on fluids. She is adding salt to her diet . Pt had coccygeal fracture during fall last summer. She got an x-ray in the ED that was negative and was refused a CT. A CT showed the fracture. Pt went to chiropractor in [facility] within the 6 months and they adjusted her neck and she felt a lot better. She saw a craniosacral therapist in [facility] that helped with the coccyx. Pt has right arm tingling and pain at least a couple of months. Prior Treatments and Tests Stable MR Treatment Goals Patient/Caregiver Goals To decrease tingling and numbness in dorsum of right hand. Her lesion is C4-6. PT-OP-C Subjective Start: 10/24/23 07:27 Freq: Status: Active Protocol: Document 10/31/23 09:02 MB (Rec: 10/31/23 09:48 MB [id number]) OP-PT Subjective Patient Comments Patient Comments Pt states that her neck pain started before her fall last summer. Pt had the passing out episode last summer. Cardiac testing including tilt table test is at [facility] and tilt table test is next week. PT-OP-J Posture/Palpation/Skin Start: 10/24/23 07:27 Freq: Status: Active Protocol: Document 10/24/23 09:05 MB (Rec: 10/24/23 12:50 MB [id number]) Posture Evaluation Comments Posture Comments Standing posture: left shoulder is 1/2 lower than the right shoulder; right iliac crest is 1/4 higher than the left, overall spine has reduced curvature at all levels PT-OP-K Range of Motion Start: 10/24/23 07:27 Freq: Status: Active Protocol: Document 10/24/23 09:05 MB (Rec: 10/24/23 12:50 MB [id number]) Cervical Spine Range of Motion Cervical Spine Active Testing Position Standing Flexion 50 Extension 30 Rotation Left 70 Rotation Right 70 Lateral Flexion Left 25 Lateral Flexion Right 15 Shoulder Goniometric Range of Motion Shoulder ROM Limitations Comments Shoulder ROM is normal PT-OP-M Strength Start: 10/24/23 07:27 Freq: Status: Active Protocol: Document 10/24/23 09:05 MB (Rec: 10/24/23 12:50 MB [id number]) Shoulder Strength Shoulder Manual Muscle Testing Bilateral Flexion 5 Normal Abduction (C5) 5 Normal External Rotation 5 Normal Internal Rotation 5 Normal Elbow/Forearm Strength Elbow and Forearm Manual Muscle Testing Left Flexion (C6) 5 Normal Extension (C7) 5 Normal Pronation 3+ Fair+ Supination 4 Good Right Flexion (C6) 5 Normal Extension (C7) 5 Normal Pronation 4 Good Supination 4+ Good+ Hand Assembler Carbon Brushes/Pinch Strength Hand Strength Left Comments 50 lb 38 lb 41 lb Right Comments 58 lb 66 lb 68 lb PT-OP-Q Treatments Start: 10/24/23 07:27 Freq: Status: Active Protocol: Document 10/31/23 09:02 MB (Rec: 10/31/23 09:48 MB [id number]) Therapeutic Exercises Supine Exercises Pelvic realignment exercises Supine Exercise Name Reviewed HEP Equipment Used Ball Reps/Minutes 5 reps, 3 sec hold all exercises in order Comments Feet together ball squeeze, knee to opp ankle isometric, thigh press down Manual Therapy Treatment Other Other Manual Treatments Pt supine and with pillow under knees and pillow under legs: STM and positional release many muscles. Pt with increased right rib tension compared to the left posteriorly, increased myofascial tension tone in right paraspinals, suboccipitals, upper traps and pect major and minor. With right arm with right hand on stomach and PT working on pect with right arm in mild IR and pect on slack, PT performs STM and positional release on right pect and her right hand symptoms start. Right infraspinatus responds well to manual work. Right first rib is not tighter than the left. Right biceps STM and right rib positional release. Neuro Re-Education Treatment Other Activities Diaphragmatic breathing with nasal breathing Comments Ed pt in benefits of nasal breathing to warm air and engage nitric oxide and CO2 exchange to engage parasympathetic nervous system . Ed pt in diaphragm breathing to help with ribs, relaxation and nervous system PT-OP-T Assessment and Plan Start: 10/24/23 07:27 Freq: Status: Active Protocol: Document 10/31/23 09:02 MB (Rec: 10/31/23 09:48 MB [id number]) Physical Therapy Assessment Rehab Potential Rehabilitation Potential Fair Evaluation Complexity Number of Personal Factors/Comorbidities 1-2 Number of Body Systems Impaired 3 Clinical Presentation at Evaluation Evolving Impairments Impairments Balance,Pain,Posture,ROM, Sensation,Soft Tissue Mobility ,Strength Goals 3 Impairment Lack of HEP Assisted Goal (LTG) Pt will perform progressive HEP with I including pelvic realignment and other postural exercises, breathing exercises, gentle flexibility and core strengthening exercises to improve posture, alignment and symptoms. LTG Duration 8 weeks 2 Impairment RUE weakness Customer Care Professional Goal (LTG) Pt will present with improved right elbow pronation to at least 4+/5 to improve fine motor tasks. LTG Duration 8 weeks 1 Impairment RUE paresthesias Assisted Goal (LTG) Pt will report at least a 50% improvement in right UE paresthesias to improve quality of life. LTG Duration 8 weeks Assessment Summary Assessment Right hand paresthesias start with right pect work with right arm in pretty neutral position. Right pect has most tension today. Will con't to monitor if short-term changes in myofascia and rib mobility contribute to pt's overall paresthesia symptoms or not. Underlying MS and cervical lesions may be the cause of symptoms and unsure how much PT can do to alter this. Breathing and exercises and manual work may help fascial mobility. Physical Therapy Plan Frequency and Duration Frequency of Treatment 1-2x/week Duration of treatment (weeks) 8 Plan of Care Start Date 10/24/23 Plan of Care End Date 12/25/23 Therapeutic Interventions Therapeutic Interventions Balance Training,Canalithic Repositioning,Coordination Training,Home Exercise Program ,Joint Mobilizations,Manual Therapy,Neuromuscular Re- education,Patient/Caregiver Education,Self-Care/Home Management,Soft Tissue Mobilization,Taping, Therapeutic Activities, Therapeutic Exercises, Vestibular Rehabilitation Modalities Cold Pack/Ice Massage,Electric Stimulation,Hot Packs, Ultrasound Next Visit Focus/Plan Next Note Type Treatment Note Next Visit Plan Consider pect stretch in hook lying if appropriate and gentle cervical range/postural progression In future, Buteyko breathing with primary PT
--- NOTE | 2023-11-07 12:42 | PT.OTN ---
Current Diagnoses Multiple sclerosis (11/07/23) Other chronic pain (11/07/23) Physical Therapy Treatment Note PT-OP-A Visit Information Start: 10/24/23 07:27 Freq: Status: Active Protocol: Document 11/07/23 12:00 MB (Rec: 11/07/23 12:42 MB [id number]) Out-Patient Physical Therapy Visit Information Visit Information Visit Type Treatment Note Visit Start Time 12:00 Visit Stop Time 12:40 Visit Number 3 Number of BOTTOM CAGER Visits 0 PT-OP-B Current Condition Start: 10/24/23 07:27 Freq: Status: Active Protocol: Document 10/24/23 09:05 MB (Rec: 10/24/23 09:36 MB [id number]) Current Condition History of Current Condition Onset Date 20 years ago onset of MS Current Complaints Tingling and pain in right UE History of Current Condition 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 She had a history of left-sided drawing up. Pt has left foot drop and her balance isn't the most wonderful thing. She has more left sided weakness than the right. She fell after passing out over the summer and they don't know why. ? POTS and she is going for a tilt table test. MR has been stable for a long time. She has some disc issues in her cervical spine. She has occ dizziness with getting up too fast. Fluids and eating does not seem to affect the dizziness. She is drinking electrolytes, eating logan and working on fluids. She is adding salt to her diet . Pt had coccygeal fracture during fall last summer. She got an x-ray in the ED that was negative and was refused a CT. A CT showed the fracture. Pt went to chiropractor in [facility] within the 6 months and they adjusted her neck and she felt a lot better. She saw a craniosacral therapist in [facility] that helped with the coccyx. Pt has right arm tingling and pain at least a couple of months. Prior Treatments and Tests Stable MR Treatment Goals Patient/Caregiver Goals To decrease tingling and numbness in dorsum of right hand. Her lesion is C4-6. PT-OP-C Subjective Start: 10/24/23 07:27 Freq: Status: Active Protocol: Document 11/07/23 12:00 MB (Rec: 11/07/23 12:42 MB [id number]) OP-PT Subjective Patient Comments Patient Comments Pt asks PT to dig into her trigger point. She has a foam roller at home. Pt did try pelvic realignment exercises and diaphragm breathing. PT-OP-J Posture/Palpation/Skin Start: 10/24/23 07:27 Freq: Status: Active Protocol: Document 10/24/23 09:05 MB (Rec: 10/24/23 12:50 MB [id number]) Posture Evaluation Comments Posture Comments Standing posture: left shoulder is 1/2 lower than the right shoulder; right iliac crest is 1/4 higher than the left, overall spine has reduced curvature at all levels PT-OP-K Range of Motion Start: 10/24/23 07:27 Freq: Status: Active Protocol: Document 10/24/23 09:05 MB (Rec: 10/24/23 12:50 MB [id number]) Cervical Spine Range of Motion Cervical Spine Active Testing Position Standing Flexion 50 Extension 30 Rotation Left 70 Rotation Right 70 Lateral Flexion Left 25 Lateral Flexion Right 15 Shoulder Goniometric Range of Motion Shoulder ROM Limitations Comments Shoulder ROM is normal PT-OP-M Strength Start: 10/24/23 07:27 Freq: Status: Active Protocol: Document 10/24/23 09:05 MB (Rec: 10/24/23 12:50 MB [id number]) Shoulder Strength Shoulder Manual Muscle Testing Bilateral Flexion 5 Normal Abduction (C5) 5 Normal External Rotation 5 Normal Internal Rotation 5 Normal Elbow/Forearm Strength Elbow and Forearm Manual Muscle Testing Left Flexion (C6) 5 Normal Extension (C7) 5 Normal Pronation 3+ Fair+ Supination 4 Good Right Flexion (C6) 5 Normal Extension (C7) 5 Normal Pronation 4 Good Supination 4+ Good+ Hand Senior Construction Manager/Pinch Strength Hand Strength Left Comments 50 lb 38 lb 41 lb Right Comments 58 lb 66 lb 68 lb PT-OP-Q Treatments Start: 10/24/23 07:27 Freq: Status: Active Protocol: Document 11/07/23 12:00 MB (Rec: 11/07/23 12:42 MB [id number]) Therapeutic Exercises Supine Exercises Foam roller AROM and stretch progression Supine Exercise Name Unilateral and B shoulder flexion, Ts, 1/2Xs, pect stretch Equipment Used 6 foam roller Reps/Minutes 10 reps active motion, 1 rep hold pect Manual Therapy Treatment Other Other Manual Treatments Pt supine and with pillow under knees and pillow under legs: STM and positional release many muscles: positional release thoracic spine and ribs, B pects, levator, intrascapular muscles and upper traps to neck PT-OP-T Assessment and Plan Start: 10/24/23 07:27 Freq: Status: Active Protocol: Document 11/07/23 12:00 MB (Rec: 11/07/23 12:42 MB [id number]) Physical Therapy Assessment Rehab Potential Rehabilitation Potential Fair Evaluation Complexity Number of Personal Factors/Comorbidities 1-2 Number of Body Systems Impaired 3 Clinical Presentation at Evaluation Evolving Impairments Impairments Balance,Pain,Posture,ROM, Sensation,Soft Tissue Mobility ,Strength Goals 3 Impairment Lack of HEP Clerk Of Court Goal (LTG) Pt will perform progressive HEP with I including pelvic realignment and other postural exercises, breathing exercises, gentle flexibility and core strengthening exercises to improve posture, alignment and symptoms. LTG Duration 8 weeks 2 Impairment RUE weakness Residential Goal (LTG) Pt will present with improved right elbow pronation to at least 4+/5 to improve fine motor tasks. LTG Duration 8 weeks 1 Impairment RUE paresthesias Clerk Of Court Goal (LTG) Pt will report at least a 50% improvement in right UE paresthesias to improve quality of life. LTG Duration 8 weeks Assessment Summary Assessment Pt asks for manual work and she does have trigger points with palpation and treatment and PT will work on but ed pt that muscle retraining and strengthening are also important. Pt stopped taking MS meds 4 days ago. She has cardiology and rheumatology appointments in the next couple of months but she does not have a neuro follow-up. She sees primary in two months . Did initiate foam roller exercises today with pelvic tilt. Physical Therapy Plan Frequency and Duration Frequency of Treatment 1-2x/week Duration of treatment (weeks) 8 Plan of Care Start Date 10/24/23 Plan of Care End Date 12/25/23 Therapeutic Interventions Therapeutic Interventions Balance Training,Canalithic Repositioning,Coordination Training,Home Exercise Program ,Joint Mobilizations,Manual Therapy,Neuromuscular Re- education,Patient/Caregiver Education,Self-Care/Home Management,Soft Tissue Mobilization,Taping, Therapeutic Activities, Therapeutic Exercises, Vestibular Rehabilitation Modalities Cold Pack/Ice Massage,Electric Stimulation,Hot Packs, Ultrasound Next Visit Focus/Plan Next Note Type Treatment Note Next Visit Plan In future, Rosalina back with primary PT, progress intrascapular strengthening over foam roller, standing strengthening, doorway stretch , open book, self-massage with racquet ball, gentle core progression
--- NOTE | 2023-11-07 12:43 | PT-OP ANOTE ---
PT did note a small amount of end-range torsional nystagmus, spontaneous, with left gaze today. Pt is hook lying with head and neck supported.
--- NOTE | 2023-11-20 10:30 | PT.OTN ---
Current Diagnoses Multiple sclerosis (11/20/23) Other chronic pain (11/20/23) Physical Therapy Treatment Note PT-OP-A Visit Information Start: 10/24/23 07:27 Freq: Status: Active Protocol: Document 11/20/23 09:49 SP (Rec: 11/20/23 10:33 SP [id number]) Out-Patient Physical Therapy Visit Information Visit Information Visit Type Treatment Note Visit Start Time 09:49 Visit Stop Time 10:30 Visit Number 4 Number of MANAGER NURSING Visits 1 Evaluation Information Evaluation Date 10/24/23 PT-OP-B Current Condition Start: 10/24/23 07:27 Freq: Status: Active Protocol: Document 10/24/23 09:05 MB (Rec: 10/24/23 09:36 MB [id number]) Current Condition History of Current Condition Onset Date 20 years ago onset of MS Current Complaints Tingling and pain in right UE History of Current Condition 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 She had a history of left-sided drawing up. Pt has left foot drop and her balance isn't the most wonderful thing. She has more left sided weakness than the right. She fell after passing out over the summer and they don't know why. ? POTS and she is going for a tilt table test. MR has been stable for a long time. She has some disc issues in her cervical spine. She has occ dizziness with getting up too fast. Fluids and eating does not seem to affect the dizziness. She is drinking electrolytes, eating logan and working on fluids. She is adding salt to her diet . Pt had coccygeal fracture during fall last summer. She got an x-ray in the ED that was negative and was refused a CT. A CT showed the fracture. Pt went to chiropractor in [facility] within the 6 months and they adjusted her neck and she felt a lot better. She saw a craniosacral therapist in [facility] that helped with the coccyx. Pt has right arm tingling and pain at least a couple of months. Prior Treatments and Tests Stable MR Treatment Goals Patient/Caregiver Goals To decrease tingling and numbness in dorsum of right hand. Her lesion is C4-6. PT-OP-C Subjective Start: 10/24/23 07:27 Freq: Status: Active Protocol: Document 11/20/23 09:49 SP (Rec: 11/20/23 10:33 SP [id number]) OP-PT Subjective Patient Comments Patient Comments Pt reports getting numbness tingling in R fingers and up to neck. She reports ECHO performed, stable/fine, no concerns. PT-OP-J Posture/Palpation/Skin Start: 10/24/23 07:27 Freq: Status: Active Protocol: Document 10/24/23 09:05 MB (Rec: 10/24/23 12:50 MB [id number]) Posture Evaluation Comments Posture Comments Standing posture: left shoulder is 1/2 lower than the right shoulder; right iliac crest is 1/4 higher than the left, overall spine has reduced curvature at all levels PT-OP-K Range of Motion Start: 10/24/23 07:27 Freq: Status: Active Protocol: Document 10/24/23 09:05 MB (Rec: 10/24/23 12:50 MB [id number]) Cervical Spine Range of Motion Cervical Spine Active Testing Position Standing Flexion 50 Extension 30 Rotation Left 70 Rotation Right 70 Lateral Flexion Left 25 Lateral Flexion Right 15 Shoulder Goniometric Range of Motion Shoulder ROM Limitations Comments Shoulder ROM is normal PT-OP-M Strength Start: 10/24/23 07:27 Freq: Status: Active Protocol: Document 10/24/23 09:05 MB (Rec: 10/24/23 12:50 MB [id number]) Shoulder Strength Shoulder Manual Muscle Testing Bilateral Flexion 5 Normal Abduction (C5) 5 Normal External Rotation 5 Normal Internal Rotation 5 Normal Elbow/Forearm Strength Elbow and Forearm Manual Muscle Testing Left Flexion (C6) 5 Normal Extension (C7) 5 Normal Pronation 3+ Fair+ Supination 4 Good Right Flexion (C6) 5 Normal Extension (C7) 5 Normal Pronation 4 Good Supination 4+ Good+ Hand Registered Nurse Behavioral Health/Pinch Strength Hand Strength Left Comments 50 lb 38 lb 41 lb Right Comments 58 lb 66 lb 68 lb PT-OP-Q Treatments Start: 10/24/23 07:27 Freq: Status: Active Protocol: Document 11/20/23 09:49 SP (Rec: 11/20/23 10:33 SP [id number]) Therapeutic Exercises Supine Exercises Foam roller AROM and stretch progression Supine Exercise Name Unilateral and B shoulder flexion, Ts, 1/2Xs, pec stretch Resistance AROM Pec, TB #1>#2 rest, Serratus press 3# DB Equipment Used 6 foam roller Reps/Minutes 10 reps active motion, pec stretch various angles Comments good breath /c pec str, cued slow ecc TB resistance- good UE positioning Manual Therapy Treatment Other Other Manual Treatments Pt supine and with pillow under knees and pillow under legs/ L sidelying between BLEs /under RUE: STM and positional release many muscles: B pec amira+minor, levator, UT, suboccipitals, SPS, rhomboid PT-OP-T Assessment and Plan Start: 10/24/23 07:27 Freq: Status: Active Protocol: Document 11/20/23 09:49 SP (Rec: 11/20/23 10:33 SP [id number]) Physical Therapy Assessment Goals 3 Impairment Lack of HEP Retirement Goal (LTG) Pt will perform progressive HEP with I including pelvic realignment and other postural exercises, breathing exercises, gentle flexibility and core strengthening exercises to improve posture, alignment and symptoms. LTG Duration 8 weeks 2 Impairment RUE weakness Retirement Goal (LTG) Pt will present with improved right elbow pronation to at least 4+/5 to improve fine motor tasks. LTG Duration 8 weeks 1 Impairment RUE paresthesias Retirement Goal (LTG) Pt will report at least a 50% improvement in right UE paresthesias to improve quality of life. LTG Duration 8 weeks Assessment Summary Assessment Pt good response to manual with reports able move head and arm better with almost not tension noted vs when arrived . Good response to added ther ex with time fine proper resistance TB #2 and 3# DB, cues for slow pacing with awareness of no UT recruitment / more LT fac Ts and Serratus press. Physical Therapy Plan Frequency and Duration Frequency of Treatment 1-2x/week Duration of treatment (weeks) 8 Plan of Care Start Date 10/24/23 Plan of Care End Date 12/25/23 Therapeutic Interventions Therapeutic Interventions Balance Training,Canalithic Repositioning,Coordination Training,Home Exercise Program ,Joint Mobilizations,Manual Therapy,Neuromuscular Re- education,Patient/Caregiver Education,Self-Care/Home Management,Soft Tissue Mobilization,Taping, Therapeutic Activities, Therapeutic Exercises, Vestibular Rehabilitation Modalities Cold Pack/Ice Massage,Electric Stimulation,Hot Packs, Ultrasound Next Visit Focus/Plan Next Note Type Treatment Note Next Visit Plan Review HEP: assess added TB and serratus press. POC: In future, Buteyko breathing with primary PT, progress intrascapular strengthening over foam roller , standing strengthening, doorway stretch, open book, self-massage with racquet ball , gentle core progression
--- NOTE | 2023-11-27 15:16 | PT.OTN ---
Current Diagnoses Multiple sclerosis (11/27/23) Other chronic pain (11/27/23) Physical Therapy Treatment Note PT-OP-A Visit Information Start: 10/24/23 07:27 Freq: Status: Active Protocol: Document 11/27/23 14:27 MB (Rec: 11/27/23 15:16 MB [id number]) Out-Patient Physical Therapy Visit Information Visit Information Visit Type Treatment Note Visit Start Time 14:27 Visit Stop Time 15:07 Visit Number 5 Number of SACK SEWER Visits 0 PT-OP-B Current Condition Start: 10/24/23 07:27 Freq: Status: Active Protocol: Document 10/24/23 09:05 MB (Rec: 10/24/23 09:36 MB [id number]) Current Condition History of Current Condition Onset Date 20 years ago onset of MS Current Complaints Tingling and pain in right UE History of Current Condition 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 She had a history of left-sided drawing up. Pt has left foot drop and her balance isn't the most wonderful thing. She has more left sided weakness than the right. She fell after passing out over the summer and they don't know why. ? POTS and she is going for a tilt table test. MR has been stable for a long time. She has some disc issues in her cervical spine. She has occ dizziness with getting up too fast. Fluids and eating does not seem to affect the dizziness. She is drinking electrolytes, eating logan and working on fluids. She is adding salt to her diet . Pt had coccygeal fracture during fall last summer. She got an x-ray in the ED that was negative and was refused a CT. A CT showed the fracture. Pt went to chiropractor in [facility] within the 6 months and they adjusted her neck and she felt a lot better. She saw a craniosacral therapist in [facility] that helped with the coccyx. Pt has right arm tingling and pain at least a couple of months. Prior Treatments and Tests Stable MR Treatment Goals Patient/Caregiver Goals To decrease tingling and numbness in dorsum of right hand. Her lesion is C4-6. PT-OP-C Subjective Start: 10/24/23 07:27 Freq: Status: Active Protocol: Document 11/27/23 14:27 MB (Rec: 11/27/23 15:16 MB [id number]) OP-PT Subjective Patient Comments Patient Comments Pt states that the manual work was awesome. The numbness and tingling in right fingers up to neck is still there and every now and then, it is on left. She has stopped MS meds. PT-OP-J Posture/Palpation/Skin Start: 10/24/23 07:27 Freq: Status: Active Protocol: Document 10/24/23 09:05 MB (Rec: 10/24/23 12:50 MB [id number]) Posture Evaluation Comments Posture Comments Standing posture: left shoulder is 1/2 lower than the right shoulder; right iliac crest is 1/4 higher than the left, overall spine has reduced curvature at all levels PT-OP-K Range of Motion Start: 10/24/23 07:27 Freq: Status: Active Protocol: Document 10/24/23 09:05 MB (Rec: 10/24/23 12:50 MB [id number]) Cervical Spine Range of Motion Cervical Spine Active Testing Position Standing Flexion 50 Extension 30 Rotation Left 70 Rotation Right 70 Lateral Flexion Left 25 Lateral Flexion Right 15 Shoulder Goniometric Range of Motion Shoulder ROM Limitations Comments Shoulder ROM is normal PT-OP-M Strength Start: 10/24/23 07:27 Freq: Status: Active Protocol: Document 10/24/23 09:05 MB (Rec: 10/24/23 12:50 MB [id number]) Shoulder Strength Shoulder Manual Muscle Testing Bilateral Flexion 5 Normal Abduction (C5) 5 Normal External Rotation 5 Normal Internal Rotation 5 Normal Elbow/Forearm Strength Elbow and Forearm Manual Muscle Testing Left Flexion (C6) 5 Normal Extension (C7) 5 Normal Pronation 3+ Fair+ Supination 4 Good Right Flexion (C6) 5 Normal Extension (C7) 5 Normal Pronation 4 Good Supination 4+ Good+ Hand Scale Tester/Pinch Strength Hand Strength Left Comments 50 lb 38 lb 41 lb Right Comments 58 lb 66 lb 68 lb PT-OP-Q Treatments Start: 10/24/23 07:27 Freq: Status: Active Protocol: Document 11/27/23 14:27 MB (Rec: 11/27/23 15:16 MB [id number]) Therapeutic Exercises Supine Exercises Further foam roller ex Resistance TB #3 Equipment Used 6 foam roller Reps/Minutes 10 reps Comments Elbows at side Foam roller AROM and stretch progression Supine Exercise Name Unilateral and B shoulder flexion, Ts, 1/2Xs, pec stretch Resistance AROM Pec, TB #3 rest, Serratus press 3# DB Equipment Used 6 foam roller Reps/Minutes 10 reps active motion, pec stretch various angles Comments good breath /c pec str, cued slow ecc TB resistance- good UE positioning Sidelying Exercises Open book Comments Arms out straight and hold about 20 sec, 2 reps each side Manual Therapy Treatment Other Other Manual Treatments Pt supine and with pillow under knees and pillow under legs: PA cervical mobs grade III-IV, STM and positional release B upper traps, cervical paraspinals, levator scap and right pects, suboccipital release PT-OP-T Assessment and Plan Start: 10/24/23 07:27 Freq: Status: Active Protocol: Document 11/27/23 14:27 MB (Rec: 11/27/23 15:16 MB [id number]) Physical Therapy Assessment Rehab Potential Rehabilitation Potential Fair Evaluation Complexity Number of Personal Factors/Comorbidities 1-2 Number of Body Systems Impaired 3 Clinical Presentation at Evaluation Evolving Impairments Impairments Balance,Pain,Posture,ROM, Sensation,Soft Tissue Mobility ,Strength Goals 3 Impairment Lack of HEP Mcc Goal (LTG) Pt will perform progressive HEP with I including pelvic realignment and other postural exercises, breathing exercises, gentle flexibility and core strengthening exercises to improve posture, alignment and symptoms. LTG Duration 8 weeks 2 Impairment RUE weakness Mcc Goal (LTG) Pt will present with improved right elbow pronation to at least 4+/5 to improve fine motor tasks. LTG Duration 8 weeks 1 Impairment RUE paresthesias Merchandise Shopper Goal (LTG) Pt will report at least a 50% improvement in right UE paresthesias to improve quality of life. LTG Duration 8 weeks Assessment Summary Assessment Pt reports good response to manual but overall symptoms have not changed and she stopped MS meds. Given this in setting of known cervical lesions, will con't PT for 4 more treatments and then will d/c as PT will have met postural and strengthening goals. Muscle tension changes with manual work and returns pretty quickly and likely d/t neurological tone issues. Recommend following up with neurologist about possible low dose pharmacological assistance for muscle tone as pt has a normal active life with weight bearing exercise and may just need something to help with the tone that could possibly help with paresthesias. Physical Therapy Plan Frequency and Duration Frequency of Treatment 1-2x/week Duration of treatment (weeks) 8 Plan of Care Start Date 10/24/23 Plan of Care End Date 12/25/23 Therapeutic Interventions Therapeutic Interventions Balance Training,Canalithic Repositioning,Coordination Training,Home Exercise Program ,Joint Mobilizations,Manual Therapy,Neuromuscular Re- education,Patient/Caregiver Education,Self-Care/Home Management,Soft Tissue Mobilization,Taping, Therapeutic Activities, Therapeutic Exercises, Vestibular Rehabilitation Modalities Cold Pack/Ice Massage,Electric Stimulation,Hot Packs, Ultrasound Other Referrals/Consults Referrals/Consults Recommended Follow-up with neurologist about muscle tone and possible pharmacological intervention to assist Next Visit Focus/Plan Next Note Type Treatment Note Next Visit Plan In future, consider Buteyko breathing with primary PT, consider Body Blade, doorway stretch, self-massage with theracane or back chief talent officer, if time gentle core progression
--- NOTE | 2023-11-29 09:45 | PT.OTN ---
Current Diagnoses Multiple sclerosis (11/29/23) Other chronic pain (11/29/23) Physical Therapy Treatment Note PT-OP-A Visit Information Start: 10/24/23 07:27 Freq: Status: Active Protocol: Document 11/29/23 09:02 MB (Rec: 11/29/23 09:44 MB [id number]) Out-Patient Physical Therapy Visit Information Visit Information Visit Type Treatment Note Visit Start Time 09:02 Visit Stop Time 09:42 Visit Number 6 Number of SHIPPER Visits 0 PT-OP-B Current Condition Start: 10/24/23 07:27 Freq: Status: Active Protocol: Document 10/24/23 09:05 MB (Rec: 10/24/23 09:36 MB [id number]) Current Condition History of Current Condition Onset Date 20 years ago onset of MS Current Complaints Tingling and pain in right UE History of Current Condition 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 She had a history of left-sided drawing up. Pt has left foot drop and her balance isn't the most wonderful thing. She has more left sided weakness than the right. She fell after passing out over the summer and they don't know why. ? POTS and she is going for a tilt table test. MR has been stable for a long time. She has some disc issues in her cervical spine. She has occ dizziness with getting up too fast. Fluids and eating does not seem to affect the dizziness. She is drinking electrolytes, eating logan and working on fluids. She is adding salt to her diet . Pt had coccygeal fracture during fall last summer. She got an x-ray in the ED that was negative and was refused a CT. A CT showed the fracture. Pt went to chiropractor in [facility] within the 6 months and they adjusted her neck and she felt a lot better. She saw a craniosacral therapist in [facility] that helped with the coccyx. Pt has right arm tingling and pain at least a couple of months. Prior Treatments and Tests Stable MR Treatment Goals Patient/Caregiver Goals To decrease tingling and numbness in dorsum of right hand. Her lesion is C4-6. PT-OP-C Subjective Start: 10/24/23 07:27 Freq: Status: Active Protocol: Document 11/29/23 09:02 MB (Rec: 11/29/23 09:44 MB [id number]) OP-PT Subjective Patient Comments Patient Comments No new news after last treatment. She had a headache yesterday. PT-OP-J Posture/Palpation/Skin Start: 10/24/23 07:27 Freq: Status: Active Protocol: Document 10/24/23 09:05 MB (Rec: 10/24/23 12:50 MB [id number]) Posture Evaluation Comments Posture Comments Standing posture: left shoulder is 1/2 lower than the right shoulder; right iliac crest is 1/4 higher than the left, overall spine has reduced curvature at all levels PT-OP-K Range of Motion Start: 10/24/23 07:27 Freq: Status: Active Protocol: Document 10/24/23 09:05 MB (Rec: 10/24/23 12:50 MB [id number]) Cervical Spine Range of Motion Cervical Spine Active Testing Position Standing Flexion 50 Extension 30 Rotation Left 70 Rotation Right 70 Lateral Flexion Left 25 Lateral Flexion Right 15 Shoulder Goniometric Range of Motion Shoulder ROM Limitations Comments Shoulder ROM is normal PT-OP-M Strength Start: 10/24/23 07:27 Freq: Status: Active Protocol: Document 10/24/23 09:05 MB (Rec: 10/24/23 12:50 MB [id number]) Shoulder Strength Shoulder Manual Muscle Testing Bilateral Flexion 5 Normal Abduction (C5) 5 Normal External Rotation 5 Normal Internal Rotation 5 Normal Elbow/Forearm Strength Elbow and Forearm Manual Muscle Testing Left Flexion (C6) 5 Normal Extension (C7) 5 Normal Pronation 3+ Fair+ Supination 4 Good Right Flexion (C6) 5 Normal Extension (C7) 5 Normal Pronation 4 Good Supination 4+ Good+ Hand Logistics Operations Director/Pinch Strength Hand Strength Left Comments 50 lb 38 lb 41 lb Right Comments 58 lb 66 lb 68 lb PT-OP-Q Treatments Start: 10/24/23 07:27 Freq: Status: Active Protocol: Document 11/29/23 09:02 MB (Rec: 11/29/23 09:44 MB [id number]) Therapeutic Exercises Supine Exercises Buteyko breathing Reps/Minutes 6 reps and see assessment for numbers Comments O2 sats and HR before 6 reps: 98%, 79 BPM Neuro Re-Education Treatment Other Activities Diaphragmatic breathing with nasal breathing Comments Pt performs this after several reps of Buteyko breathing to help improve parasympathetic response and nitric oxide exchange and pt does well with this today and several reps PT-OP-T Assessment and Plan Start: 10/24/23 07:27 Freq: Status: Active Protocol: Document 11/29/23 09:02 MB (Rec: 11/29/23 09:44 MB [id number]) Physical Therapy Assessment Rehab Potential Rehabilitation Potential Fair Evaluation Complexity Number of Personal Factors/Comorbidities 1-2 Number of Body Systems Impaired 3 Clinical Presentation at Evaluation Evolving Impairments Impairments Balance,Pain,Posture,ROM, Sensation,Soft Tissue Mobility ,Strength Goals 3 Impairment Lack of HEP Central Office Supervisor Goal (LTG) Pt will perform progressive HEP with I including pelvic realignment and other postural exercises, breathing exercises, gentle flexibility and core strengthening exercises to improve posture, alignment and symptoms. LTG Duration 8 weeks 2 Impairment RUE weakness Correction Goal (LTG) Pt will present with improved right elbow pronation to at least 4+/5 to improve fine motor tasks. LTG Duration 8 weeks 1 Impairment RUE paresthesias Central Office Supervisor Goal (LTG) Pt will report at least a 50% improvement in right UE paresthesias to improve quality of life. LTG Duration 8 weeks Assessment Summary Assessment Buteyko breathing reps in supine with head and legs supported and O2 sats and HR right index finger: after several minutes of just nasal breathing, sats 99% and HR 65 BPM. PT notices thorax moving and so cues to inflate and deflate stomach with breathing . Controlled pause reps: 1st: 20 sec and sats 98% and HR 71 BPM; book on stomach and nasal breathing and HR 64 BPM; 2nd rep: 24 sec, 98% and HR 67 BPM ; 3rd rep: 27 sec, 99% 64 BPM; 4th rep: 35 sec, 98% and HR 74 BPM; nasal breathing and HR 63-64 BPM, 5th rep: 23 sec, 97% and 70 BPM. 6th rep: Overall, pts oxygenation and HR are better even with gentle nasal breathing. She does occ tend to change to more thoracic breathing rather than diaphragmatic breathing and so ed pt to monitor. Physical Therapy Plan Frequency and Duration Frequency of Treatment 1-2x/week Duration of treatment (weeks) 8 Plan of Care Start Date 10/24/23 Plan of Care End Date 12/25/23 Therapeutic Interventions Therapeutic Interventions Balance Training,Canalithic Repositioning,Coordination Training,Home Exercise Program ,Joint Mobilizations,Manual Therapy,Neuromuscular Re- education,Patient/Caregiver Education,Self-Care/Home Management,Soft Tissue Mobilization,Taping, Therapeutic Activities, Therapeutic Exercises, Vestibular Rehabilitation Modalities Cold Pack/Ice Massage,Electric Stimulation,Hot Packs, Ultrasound Other Referrals/Consults Referrals/Consults Recommended Follow-up with neurologist about muscle tone and possible pharmacological intervention to assist Next Visit Focus/Plan Next Note Type Treatment Note Next Visit Plan Consider Body Blade, doorway stretch, self-massage with theracane or back primer assembler, if time gentle core progression
--- NOTE | 2023-11-29 09:49 | PT.OTN ---
Current Diagnoses Multiple sclerosis (11/29/23) Other chronic pain (11/29/23) Physical Therapy Treatment Note PT-OP-A Visit Information Start: 10/24/23 07:27 Freq: Status: Active Protocol: Document 11/29/23 09:02 MB (Rec: 11/29/23 09:44 MB [id number]) Out-Patient Physical Therapy Visit Information Visit Information Visit Type Treatment Note Visit Start Time 09:02 Visit Stop Time 09:42 Visit Number 6 Number of SEISMOGRAPH SUPERVISOR Visits 0 PT-OP-B Current Condition Start: 10/24/23 07:27 Freq: Status: Active Protocol: Document 10/24/23 09:05 MB (Rec: 10/24/23 09:36 MB [id number]) Current Condition History of Current Condition Onset Date 20 years ago onset of MS Current Complaints Tingling and pain in right UE History of Current Condition 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 She had a history of left-sided drawing up. Pt has left foot drop and her balance isn't the most wonderful thing. She has more left sided weakness than the right. She fell after passing out over the summer and they don't know why. ? POTS and she is going for a tilt table test. MR has been stable for a long time. She has some disc issues in her cervical spine. She has occ dizziness with getting up too fast. Fluids and eating does not seem to affect the dizziness. She is drinking electrolytes, eating logan and working on fluids. She is adding salt to her diet . Pt had coccygeal fracture during fall last summer. She got an x-ray in the ED that was negative and was refused a CT. A CT showed the fracture. Pt went to chiropractor in [facility] within the 6 months and they adjusted her neck and she felt a lot better. She saw a craniosacral therapist in [facility] that helped with the coccyx. Pt has right arm tingling and pain at least a couple of months. Prior Treatments and Tests Stable MR Treatment Goals Patient/Caregiver Goals To decrease tingling and numbness in dorsum of right hand. Her lesion is C4-6. PT-OP-C Subjective Start: 10/24/23 07:27 Freq: Status: Active Protocol: Document 11/29/23 09:02 MB (Rec: 11/29/23 09:44 MB [id number]) OP-PT Subjective Patient Comments Patient Comments No new news after last treatment. She had a headache yesterday. PT-OP-J Posture/Palpation/Skin Start: 10/24/23 07:27 Freq: Status: Active Protocol: Document 10/24/23 09:05 MB (Rec: 10/24/23 12:50 MB [id number]) Posture Evaluation Comments Posture Comments Standing posture: left shoulder is 1/2 lower than the right shoulder; right iliac crest is 1/4 higher than the left, overall spine has reduced curvature at all levels PT-OP-K Range of Motion Start: 10/24/23 07:27 Freq: Status: Active Protocol: Document 10/24/23 09:05 MB (Rec: 10/24/23 12:50 MB [id number]) Cervical Spine Range of Motion Cervical Spine Active Testing Position Standing Flexion 50 Extension 30 Rotation Left 70 Rotation Right 70 Lateral Flexion Left 25 Lateral Flexion Right 15 Shoulder Goniometric Range of Motion Shoulder ROM Limitations Comments Shoulder ROM is normal PT-OP-M Strength Start: 10/24/23 07:27 Freq: Status: Active Protocol: Document 10/24/23 09:05 MB (Rec: 10/24/23 12:50 MB [id number]) Shoulder Strength Shoulder Manual Muscle Testing Bilateral Flexion 5 Normal Abduction (C5) 5 Normal External Rotation 5 Normal Internal Rotation 5 Normal Elbow/Forearm Strength Elbow and Forearm Manual Muscle Testing Left Flexion (C6) 5 Normal Extension (C7) 5 Normal Pronation 3+ Fair+ Supination 4 Good Right Flexion (C6) 5 Normal Extension (C7) 5 Normal Pronation 4 Good Supination 4+ Good+ Hand Aligner Typewriter/Pinch Strength Hand Strength Left Comments 50 lb 38 lb 41 lb Right Comments 58 lb 66 lb 68 lb PT-OP-Q Treatments Start: 10/24/23 07:27 Freq: Status: Active Protocol: Document 11/29/23 09:02 MB (Rec: 11/29/23 09:44 MB [id number]) Therapeutic Exercises Supine Exercises Buteyko breathing Reps/Minutes 6 reps and see assessment for numbers Comments O2 sats and HR before 6 reps: 98%, 79 BPM Neuro Re-Education Treatment Other Activities Diaphragmatic breathing with nasal breathing Comments Pt performs this after several reps of Buteyko breathing to help improve parasympathetic response and nitric oxide exchange and pt does well with this today and several reps PT-OP-T Assessment and Plan Start: 10/24/23 07:27 Freq: Status: Active Protocol: Document 11/29/23 09:02 MB (Rec: 11/29/23 09:44 MB [id number]) Physical Therapy Assessment Rehab Potential Rehabilitation Potential Fair Evaluation Complexity Number of Personal Factors/Comorbidities 1-2 Number of Body Systems Impaired 3 Clinical Presentation at Evaluation Evolving Impairments Impairments Balance,Pain,Posture,ROM, Sensation,Soft Tissue Mobility ,Strength Goals 3 Impairment Lack of HEP Lathe Set Up Operator Goal (LTG) Pt will perform progressive HEP with I including pelvic realignment and other postural exercises, breathing exercises, gentle flexibility and core strengthening exercises to improve posture, alignment and symptoms. LTG Duration 8 weeks 2 Impairment RUE weakness Alf Goal (LTG) Pt will present with improved right elbow pronation to at least 4+/5 to improve fine motor tasks. LTG Duration 8 weeks 1 Impairment RUE paresthesias Lathe Set Up Operator Goal (LTG) Pt will report at least a 50% improvement in right UE paresthesias to improve quality of life. LTG Duration 8 weeks Assessment Summary Assessment Buteyko breathing reps in supine with head and legs supported and O2 sats and HR right index finger: after several minutes of just nasal breathing, sats 99% and HR 65 BPM. PT notices thorax moving and so cues to inflate and deflate stomach with breathing . Controlled pause reps: 1st: 20 sec and sats 98% and HR 71 BPM; book on stomach and nasal breathing and HR 64 BPM; 2nd rep: 24 sec, 98% and HR 67 BPM ; 3rd rep: 27 sec, 99% 64 BPM; 4th rep: 35 sec, 98% and HR 74 BPM; nasal breathing and HR 63-64 BPM, 5th rep: 23 sec, 97% and 70 BPM. 6th rep: Overall, pts oxygenation and HR are better even with gentle nasal breathing. She does occ tend to change to more thoracic breathing rather than diaphragmatic breathing and so ed pt to monitor. Physical Therapy Plan Frequency and Duration Frequency of Treatment 1-2x/week Duration of treatment (weeks) 8 Plan of Care Start Date 10/24/23 Plan of Care End Date 12/25/23 Therapeutic Interventions Therapeutic Interventions Balance Training,Canalithic Repositioning,Coordination Training,Home Exercise Program ,Joint Mobilizations,Manual Therapy,Neuromuscular Re- education,Patient/Caregiver Education,Self-Care/Home Management,Soft Tissue Mobilization,Taping, Therapeutic Activities, Therapeutic Exercises, Vestibular Rehabilitation Modalities Cold Pack/Ice Massage,Electric Stimulation,Hot Packs, Ultrasound Other Referrals/Consults Referrals/Consults Recommended Follow-up with neurologist about muscle tone and possible pharmacological intervention to assist Next Visit Focus/Plan Next Note Type Treatment Note Next Visit Plan Consider Body Blade, doorway stretch, self-massage with theracane or back cutting machine offbearer, if time gentle core progression
--- NOTE | 2023-12-05 10:49 | PT-OP ANOTE ---
Pt canceled same day d/t allergies.
--- NOTE | 2023-12-07 14:28 | PT.OTN ---
Current Diagnoses Multiple sclerosis (12/07/23) Other chronic pain (12/07/23) Physical Therapy Treatment Note PT-OP-A Visit Information Start: 10/24/23 07:27 Freq: Status: Active Protocol: Document 12/07/23 13:41 SP (Rec: 12/07/23 14:32 SP [id number]) Out-Patient Physical Therapy Visit Information Visit Information Visit Type Treatment Note Visit Start Time 13:41 Visit Stop Time 14:28 Visit Number 7 Number of MARKETING AMBASSADOR Visits 1 Evaluation Information Evaluation Date 10/24/23 PT-OP-B Current Condition Start: 10/24/23 07:27 Freq: Status: Active Protocol: Document 10/24/23 09:05 MB (Rec: 10/24/23 09:36 MB [id number]) Current Condition History of Current Condition Onset Date 20 years ago onset of MS Current Complaints Tingling and pain in right UE History of Current Condition 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 She had a history of left-sided drawing up. Pt has left foot drop and her balance isn't the most wonderful thing. She has more left sided weakness than the right. She fell after passing out over the summer and they don't know why. ? POTS and she is going for a tilt table test. MR has been stable for a long time. She has some disc issues in her cervical spine. She has occ dizziness with getting up too fast. Fluids and eating does not seem to affect the dizziness. She is drinking electrolytes, eating logan and working on fluids. She is adding salt to her diet . Pt had coccygeal fracture during fall last summer. She got an x-ray in the ED that was negative and was refused a CT. A CT showed the fracture. Pt went to chiropractor in [facility] within the 6 months and they adjusted her neck and she felt a lot better. She saw a craniosacral therapist in [facility] that helped with the coccyx. Pt has right arm tingling and pain at least a couple of months. Prior Treatments and Tests Stable MR Treatment Goals Patient/Caregiver Goals To decrease tingling and numbness in dorsum of right hand. Her lesion is C4-6. PT-OP-C Subjective Start: 10/24/23 07:27 Freq: Status: Active Protocol: Document 12/07/23 13:41 SP (Rec: 12/07/23 14:32 SP [id number]) OP-PT Subjective Patient Comments Patient Comments Pt reports had to cancel last appt really sick and not mostly congested so wearing mask. Didnt' do much ex other than breathing instructed which finds helped calm system . Pt reported saw Member Services Representative and didn't find helpful and that physician stated if didn't like results can get second opinion. She stated will be seeking a second opinion, thinks there is something not right. PT-OP-J Posture/Palpation/Skin Start: 10/24/23 07:27 Freq: Status: Active Protocol: Document 10/24/23 09:05 MB (Rec: 10/24/23 12:50 MB [id number]) Posture Evaluation Comments Posture Comments Standing posture: left shoulder is 1/2 lower than the right shoulder; right iliac crest is 1/4 higher than the left, overall spine has reduced curvature at all levels PT-OP-K Range of Motion Start: 10/24/23 07:27 Freq: Status: Active Protocol: Document 10/24/23 09:05 MB (Rec: 10/24/23 12:50 MB [id number]) Cervical Spine Range of Motion Cervical Spine Active Testing Position Standing Flexion 50 Extension 30 Rotation Left 70 Rotation Right 70 Lateral Flexion Left 25 Lateral Flexion Right 15 Shoulder Goniometric Range of Motion Shoulder ROM Limitations Comments Shoulder ROM is normal PT-OP-M Strength Start: 10/24/23 07:27 Freq: Status: Active Protocol: Document 10/24/23 09:05 MB (Rec: 10/24/23 12:50 MB [id number]) Shoulder Strength Shoulder Manual Muscle Testing Bilateral Flexion 5 Normal Abduction (C5) 5 Normal External Rotation 5 Normal Internal Rotation 5 Normal Elbow/Forearm Strength Elbow and Forearm Manual Muscle Testing Left Flexion (C6) 5 Normal Extension (C7) 5 Normal Pronation 3+ Fair+ Supination 4 Good Right Flexion (C6) 5 Normal Extension (C7) 5 Normal Pronation 4 Good Supination 4+ Good+ Hand Athletic Scout/Pinch Strength Hand Strength Left Comments 50 lb 38 lb 41 lb Right Comments 58 lb 66 lb 68 lb PT-OP-Q Treatments Start: 10/24/23 07:27 Freq: Status: Active Protocol: Document 12/07/23 13:41 SP (Rec: 12/07/23 14:32 SP [id number]) Therapeutic Exercises Supine Exercises Foam roller AROM and stretch progression Supine Exercise Name AROM on bed post manual: FF, HABD, pec stretch Side bilateral Reps/Minutes 10 reps each Comments AROM, pec stretch /c breath Standing Exercises body blade Standing Exercise Name single punch down/abd/OH; bila fwd & lateral Side bilateral Reps/Minutes 30 sec each direction Comments pnfree, just mus tiring pec doorway stretch Standing Exercise Name reviewed a past HEP Reps/Minutes 30 x3 reps Comments good stretch, self scap positioning, no UT recruitment Other Exercises self STMs Other Exercise Name interscap MWM /c breath, neck MWM head nod/turns Side bilateral Equipment Used thercane, she uses ball wall and vibrating tool home Comments good feedback Manual Therapy Treatment Other Other Manual Treatments Craniosacral Therapy head, LS R>L, Scalene L>R, suboccipitals, SOR- good response pain reduction in neck and head. PT-OP-T Assessment and Plan Start: 10/24/23 07:27 Freq: Status: Active Protocol: Document 12/07/23 13:41 SP (Rec: 12/07/23 14:32 SP [id number]) Physical Therapy Assessment Goals 3 Impairment Lack of HEP Manufacturing Technology Analyst Goal (LTG) Pt will perform progressive HEP with I including pelvic realignment and other postural exercises, breathing exercises, gentle flexibility and core strengthening exercises to improve posture, alignment and symptoms. LTG Duration 8 weeks 2 Impairment RUE weakness Manufacturing Technology Analyst Goal (LTG) Pt will present with improved right elbow pronation to at least 4+/5 to improve fine motor tasks. LTG Duration 8 weeks 1 Impairment RUE paresthesias Manufacturing Technology Analyst Goal (LTG) Pt will report at least a 50% improvement in right UE paresthesias to improve quality of life. LTG Duration 8 weeks Assessment Summary Assessment Pt reported buteko breathing helpful and utilizing calm system's pain. Tx focused ther ex on R shld and core strengthening use body blade suggested ther ex with no pain just muscle tiring, pec stretching standing in doorway alternative to over foam roller which utilizes already. She will consider body blade at home for good response had in PT. She responded well to manual requested post therex for neck pain and sinus congestion. PT reported more mobility, pain reduction in neck end tx. Physical Therapy Plan Frequency and Duration Frequency of Treatment 1-2x/week Duration of treatment (weeks) 8 Plan of Care Start Date 10/24/23 Plan of Care End Date 12/25/23 Therapeutic Interventions Therapeutic Interventions Balance Training,Canalithic Repositioning,Coordination Training,Home Exercise Program ,Joint Mobilizations,Manual Therapy,Neuromuscular Re- education,Patient/Caregiver Education,Self-Care/Home Management,Soft Tissue Mobilization,Taping, Therapeutic Activities, Therapeutic Exercises, Vestibular Rehabilitation Modalities Cold Pack/Ice Massage,Electric Stimulation,Hot Packs, Ultrasound Other Referrals/Consults Referrals/Consults Recommended Follow-up with neurologist about muscle tone and possible pharmacological intervention to assist Next Visit Focus/Plan Next Note Type Discharge Summary Next Visit Plan Recheck HEP needed. Next tx DC .
--- NOTE | 2023-12-19 11:17 | PT.OTN ---
Current Diagnoses Multiple sclerosis (12/19/23) Other chronic pain (12/19/23) Physical Therapy Treatment Note PT-OP-A Visit Information Start: 10/24/23 07:27 Freq: Status: Active Protocol: Document 12/19/23 10:30 MB (Rec: 12/19/23 11:17 MB [id number]) Out-Patient Physical Therapy Visit Information Visit Information Visit Type Treatment Note Visit Start Time 10:30 Visit Stop Time 11:10 Visit Number 8 PT-OP-B Current Condition Start: 10/24/23 07:27 Freq: Status: Active Protocol: Document 10/24/23 09:05 MB (Rec: 10/24/23 09:36 MB [id number]) Current Condition History of Current Condition Onset Date 20 years ago onset of MS Current Complaints Tingling and pain in right UE History of Current Condition 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 She had a history of left-sided drawing up. Pt has left foot drop and her balance isn't the most wonderful thing. She has more left sided weakness than the right. She fell after passing out over the summer and they don't know why. ? POTS and she is going for a tilt table test. MR has been stable for a long time. She has some disc issues in her cervical spine. She has occ dizziness with getting up too fast. Fluids and eating does not seem to affect the dizziness. She is drinking electrolytes, eating logan and working on fluids. She is adding salt to her diet . Pt had coccygeal fracture during fall last summer. She got an x-ray in the ED that was negative and was refused a CT. A CT showed the fracture. Pt went to chiropractor in [facility] within the 6 months and they adjusted her neck and she felt a lot better. She saw a craniosacral therapist in [facility] that helped with the coccyx. Pt has right arm tingling and pain at least a couple of months. Prior Treatments and Tests Stable MR Treatment Goals Patient/Caregiver Goals To decrease tingling and numbness in dorsum of right hand. Her lesion is C4-6. PT-OP-C Subjective Start: 10/24/23 07:27 Freq: Status: Active Protocol: Document 12/19/23 10:30 MB (Rec: 12/19/23 11:17 MB [id number]) OP-PT Subjective Patient Comments Patient Comments Pt states that she is okay. She saw direct care supervisor and no answers there. She was inquiring about POTS and EDS. Pt emailed with neurologist and he does not think that any symptoms are coming from cervical lesion. She asks again about cervical instability. PT-OP-J Posture/Palpation/Skin Start: 10/24/23 07:27 Freq: Status: Active Protocol: Document 10/24/23 09:05 MB (Rec: 10/24/23 12:50 MB [id number]) Posture Evaluation Comments Posture Comments Standing posture: left shoulder is 1/2 lower than the right shoulder; right iliac crest is 1/4 higher than the left, overall spine has reduced curvature at all levels PT-OP-K Range of Motion Start: 10/24/23 07:27 Freq: Status: Active Protocol: Document 10/24/23 09:05 MB (Rec: 10/24/23 12:50 MB [id number]) Cervical Spine Range of Motion Cervical Spine Active Testing Position Standing Flexion 50 Extension 30 Rotation Left 70 Rotation Right 70 Lateral Flexion Left 25 Lateral Flexion Right 15 Shoulder Goniometric Range of Motion Shoulder ROM Limitations Comments Shoulder ROM is normal PT-OP-M Strength Start: 10/24/23 07:27 Freq: Status: Active Protocol: Document 10/24/23 09:05 MB (Rec: 10/24/23 12:50 MB [id number]) Shoulder Strength Shoulder Manual Muscle Testing Bilateral Flexion 5 Normal Abduction (C5) 5 Normal External Rotation 5 Normal Internal Rotation 5 Normal Elbow/Forearm Strength Elbow and Forearm Manual Muscle Testing Left Flexion (C6) 5 Normal Extension (C7) 5 Normal Pronation 3+ Fair+ Supination 4 Good Right Flexion (C6) 5 Normal Extension (C7) 5 Normal Pronation 4 Good Supination 4+ Good+ Hand Lens Cutter/Pinch Strength Hand Strength Left Comments 50 lb 38 lb 41 lb Right Comments 58 lb 66 lb 68 lb PT-OP-Q Treatments Start: 10/24/23 07:27 Freq: Status: Active Protocol: Document 12/19/23 10:30 MB (Rec: 12/19/23 11:17 MB [id number]) Therapeutic Exercises Other Exercises HEP review in preparation for d/c Comments HEP review and discussion about saunder's cervical traction Manual Therapy Treatment Other Other Manual Treatments Pt supine with head and neck supported: Grade II-III cervical PA mobs, positional release ribs, STM and positional release upper traps , levator and pect on the right PT-OP-T Assessment and Plan Start: 10/24/23 07:27 Freq: Status: Active Protocol: Document 12/19/23 10:30 MB (Rec: 12/19/23 11:17 MB [id number]) Physical Therapy Assessment Goals 3 Impairment Lack of HEP Correction Goal (LTG) Pt will perform progressive HEP with I including pelvic realignment and other postural exercises, breathing exercises, gentle flexibility and core strengthening exercises to improve posture, alignment and symptoms. 12/19/23: Pt is performing Buteyko breathing, body blade, stretching as needed, bridging, clam shells, pelvic realignment exercises as needed LTG Duration 8 weeks 2 Impairment RUE weakness Quill Worker Goal (LTG) Pt will present with improved right elbow pronation to at least 4+/5 to improve fine motor tasks. 12/19/23: 4/5 right pronation and 3+/5 left pronation LTG Duration 8 weeks 1 Impairment RUE paresthesias Correction Goal (LTG) Pt will report at least a 50% improvement in right UE paresthesias to improve quality of life. 12/19/23: Pt reports a 50% improvement in right UE paresthesias at this time. LTG Duration 8 weeks Assessment Summary Assessment Pt has progressed since starting PT. She has stopped taking her MS medication and is going to follow-up with neurologist. At that time, she will inquire about neuro medication to help with neuro muscle tension. Will d/c PT and PT is available as needed in the future as part of medical team. Her myofascial trigger points have a neurological component as they transiently resolve and then return.
== END 2023-12-21 08:08 | disposition home or self-care (01) ==
LOC: PHYS 10:30
PROVIDERS: Family Provider Family Medicine; PCP Family Medicine; Referring Provider Physical Medicine & Rehabilitation; Visit Provider Physical Medicine & Rehabilitation
DX: G35 Multiple sclerosis (principal); G89.29 Other chronic pain
CPT/HCPCS: 97110; 97112; 97140; 97161

== ENCOUNTER → 2024-01-24 11:40 | Outpatient (CLI) | payer MEDICARE, SELFPAY ==
[2024-01-24 12:51] LABS: Add Manual Diff / Slide Review NO; Basophils Absolute Auto 0 /uL (0-100); Basophils Percent Auto 0.6 % (0-2); Eosinophils Absolute Auto 500 /uL (0-450); Eosinophils Percent Auto 11.7 % (2-4); Hematocrit 40.3 % (36-46); Hemoglobin 13.4 g/dL (12.0-16.0); Lymphocytes Absolute Auto 1100 /uL (1100-4500); Lymphocytes Percent Auto 24.9 % (25-40); Mean Corpuscular HGB Conc 33.3 % (30-36); Mean Corpuscular Hemoglobin 31.4 PG (26-34); Mean Corpuscular Volume 94.3 fL (80-100); Monocytes Absolute Auto 400 /uL (0-900); Monocytes Percent Auto 8.6 % (3-14); Neutrophils Absolute Auto 2400 /uL (1500-7000); Neutrophils Percent Auto 54.2 % (50-75); Platelet Count 252 X10^3/uL (150-400); Red Blood Cell Count 4.28 X10^6/uL (4.0-5.2); Red Cell Distribution Width 13.3 % (11.6-14.8); White Blood Cell Count 4.5 X10^3/uL (4.5-11.0)
[2024-01-24 12:51] LABS: Hemoglobin A1C% w Est Avg Glu 5.2 % (4.0-6.0)
[2024-01-24 13:10] LABS: Alanine Aminotransferase 22 IU/L (<35); Albumin 4.7 g/dL (3.5-5.0); Albumin Globulin Ratio 1.7 (1.0-2.8); Alkaline Phosphatase 67 U/L (38-126); Aspartate Aminotransferase 56 IU/L (14-36); BUN Creatinine Ratio 12.1 (6-22); Bilirubin Total 0.7 mg/dL (0.2-1.3); Blood Urea Nitrogen 8 mg/dL (7-17); Calcium 9.3 mg/dL (8.4-10.2); Carbon Dioxide 31 mmol/L (22-32); Chloride 104 mmol/L (98-107); Cholesterol 221 mg/dL (140-199); Estimated Glomerular Filt Rate > 60 mL/min (>60); Globulin 2.8 g/dL (1.7-4.1); Glucose 91 mg/dL (70-100); HEMOLYSIS < 15 (0-50); Potassium 3.7 mmol/L (3.4-5.1); Sodium 139 mmol/L (137-145); Total Protein 7.5 g/dL (6.3-8.2); Triglycerides 75 mg/dL (35-150)
[2024-01-24 13:18] LABS: HDL Cholesterol 119 mg/dL (40-60); LDL Cholesterol Calculated 87 mg/dL (<100)
[2024-01-24 13:36] LABS: TSH w/ Reflex to FT4 1.01 uIU/mL (0.47-4.68)
== END ==
PROVIDERS: Family Provider Family Medicine; PCP Family Medicine; Referring Provider Internal Medicine Cardiovascular Disease; Visit Provider Internal Medicine Cardiovascular Disease
DX: R55 Syncope and collapse (principal); Z00.00 Encounter for general adult medical examination without abnormal findings; Z13.1 Encounter for screening for diabetes mellitus; Z13.220 Encounter for screening for lipoid disorders
CPT/HCPCS: 36415; 80053; 80061; 83036; 83735; 84443; 85025

== ENCOUNTER → 2025-03-03 16:48 | Outpatient (CLI) | payer MEDICARE, SELFPAY ==
[2025-03-03 18:09] LABS: C-Reactive Protein Quant < 0.5 mg/dL (<1.0)
== END ==
LOC: LAB 16:51
PROVIDERS: Family Provider Family Medicine; PCP Family Medicine; Referring Provider Physical Medicine & Rehabilitation; Visit Provider Physical Medicine & Rehabilitation
DX: M25.50 Pain in unspecified joint (principal); M79.10 Myalgia, unspecified site
CPT/HCPCS: 86140

== ENCOUNTER → 2025-03-17 12:47 | Outpatient (CLI) | payer MEDICARE, SELFPAY ==
[2025-03-17 15:31] LABS: Creatine Kinase 55 U/L (30-135); Uric Acid 3.0 mg/dL (2.5-6.2)
[2025-03-17 16:02] LABS: TSH w/ Reflex to FT4 0.98 uIU/mL (0.47-4.68)
[2025-03-18 01:10] LABS: Hepatitis B Core AB w/Reflex Negative (Negative)
[2025-03-18 15:29] LABS: HIV 1 & 2 Ab/Ag 4th Gen Combo NEGATIVE (NEGATIVE); Hep C Virus Ab w/Reflex Quant NEGATIVE s/c (NEGATIVE)
[2025-03-19 18:12] LABS: Antimyeloperoxidase Antibodies <0.2 units (0.0-0.9); Antiproteinase 3 Antibodies <0.2 units (0.0-0.9)
[2025-03-22 12:08] LABS: Gamma-Tocopherol 1.4 mg/L (0.5-5.5)
== END ==
PROVIDERS: Family Provider Family Medicine; PCP Family Medicine; Referring Provider Psychiatry & Neurology Neurology; Visit Provider Psychiatry & Neurology Neurology
DX: M79.10 Myalgia, unspecified site (principal); M25.50 Pain in unspecified joint; R00.0 Tachycardia, unspecified; R42 Dizziness and giddiness; R52 Pain, unspecified; R55 Syncope and collapse
CPT/HCPCS: 36415; 82164; 82550; 82607; 83516; 84207; 84425; 84443; 84446; 84550; 86038; 86160; 86200; 86235; 86255; 86256; 86430; 86592; 86596; 86617; 86704; 86706; 86803; 87389

== ENCOUNTER → 2025-05-26 14:08 | Outpatient (CLI) | payer MEDICARE, SELFPAY ==
--- NOTE | 2025-05-26 14:09 | DI.RAD.S_ITS ---
PROCEDURE: XR KNEE LT 3V INDICATIONS: Eval and treat TECHNIQUE: 3 views of the knee were acquired. COMPARISON: None. FINDINGS: Bones: There are no fracture or other osseous abnormalities. Joints: Mild degeneration patellofemoral tibiofemoral joint. Small effusion . Soft tissues: Normal IMPRESSION: Mild degeneration. Small effusion . Dictated by: Eris Wheeler M.D. on 05/27/2025 at 10:29 Approved by: Eris Wheeler M.D. on 05/27/2025 at 10:30
== END ==
LOC: RAD 14:08
PROVIDERS: Family Provider Family Medicine; PCP Family Medicine; Referring Provider Family Medicine; Visit Provider Family Medicine
DX: M17.12 Unilateral primary osteoarthritis, left knee (principal); M25.562 Pain in left knee; M24.9 Joint derangement, unspecified; M25.462 Effusion, left knee
CPT/HCPCS: 73562

== ENCOUNTER → 2025-05-31 16:14 | Outpatient (CLI) | payer MEDICARE, SELFPAY ==
--- NOTE | 2025-05-31 16:15 | DI.MRI.S_ITS ---
PROCEDURE: MR KNEE LT WO CON INDICATIONS: Further evaluation of left knee TECHNIQUE: Noncontrast sagittal PD fast spin echo and T2 fast spin echo with fat saturation, sagittal 3-D FLASH with fat saturation; coronal T1 spin echo and PD fast spin echo with fat saturation, and axial PD fast spin echo with fat saturation through the knee. COMPARISON: [facility], CR, XR KNEE LT 3V, 05/26/2025, 14:03. FINDINGS: Image quality: Excellent. Menisci: There is mild degenerative fraying of the free edge of the medial meniscal body and posterior horn which is otherwise normal appearance. Lateral meniscus is normal in appearance. Cruciate ligaments: The anterior and posterior cruciate ligaments appear intact. Medial structures: The medial collateral ligament appears intact. Visualized portions of the pes anserinus tendons appear normal. No abnormal bursal fluid. Lateral structures: The lateral collateral ligament, long and short heads of the biceps femoris tendon appear intact. The popliteus tendon appears normal. Iliotibial band appears normal. Anterior structures: The quadriceps and patellar tendons appear intact. Patellar alignment is normal. No femoral trochlear dysplasia or ventral trochlear prominence. No edema in the infrapatellar fat pad. Bones and cartilage: No bone marrow contusions or fractures. Mild articular cartilage loss diffusely overlies the weight-bearing aspects of the medial femoral condyle and medial tibial plateau. Joint space: There is physiologic knee joint fluid. No Chun's cyst. Small ganglion cyst along the popliteus. Normal appearing synovial plicae are incidentally noted. IMPRESSION: 1. Degenerative fraying and detachment of the medial meniscus. 2. Small ganglion cyst along the popliteus. 3. Medial compartment articular cartilage loss. Dictated by: Maria M Guidry M.D. on 06/02/2025 at 11:40 Approved by: Maria M Guidry M.D. on 06/02/2025 at 11:42
== END ==
LOC: MRI 16:15
PROVIDERS: Family Provider Family Medicine; PCP Family Medicine; Referring Provider Family Medicine; Visit Provider Family Medicine
DX: M25.562 Pain in left knee (principal); M67.462 Ganglion, left knee; G81.90 Hemiplegia, unspecified affecting unspecified side
CPT/HCPCS: 73721

== ENCOUNTER → 2025-07-03 12:53 | Outpatient (CLI) | payer MEDICARE, SELFPAY ==
--- NOTE | 2025-07-03 12:55 | DI.MG.S_ITS ---
MM screening mammo BI: 07/03/2025. BI-RADS: 1 CLINICAL: 50-year old female for bilateral screening mammogram. Tyrer-Cuzick lifetime risk of 5.8%. No personal or first-degree family history of breast cancer. PRIOR EXAMS 10/26/2023. MAMMOGRAPHY TECHNIQUE: 2D and 3D (tomosynthesis) digital mammographic views obtained, with additional images as needed for full coverage. Current study was also evaluated with a Computer Aided Detection (CAD) system. DENSITY C. The breasts are heterogeneously dense, which may obscure small masses. MAMMOGRAPHY FINDINGS Bilateral: No suspicious mass, asymmetry, microcalcification, or other abnormality seen. IMPRESSION: * No evidence of malignancy. RECOMMENDATIONS Bilateral * Annual screening mammography. OVERALL ASSESSMENT CATEGORY BI-RADS-1: Negative. The [employer] recommends annual screening mammography beginning at age 40 for women with average risk of breast cancer. ELECTRONICALLY SIGNED: Malachi Morales M.D. on 07/03/2025 at 10:18:56 PM PT Interpreting Station ID: [id number]
== END ==
LOC: MAMMO 12:54
PROVIDERS: Family Provider Family Medicine; PCP Family Medicine; Referring Provider Family Medicine; Visit Provider Family Medicine
DX: Z12.31 Encounter for screening mammogram for malignant neoplasm of breast (principal); R92.333 Mammographic heterogeneous density, bilateral breasts
CPT/HCPCS: 77063; 77067